=== PATIENT | male | born 1950 | race Caucasian/White ===

== ENCOUNTER → 2017-08-12 11:35 | Outpatient (CLI) | payer MEDICARE, OTHER, SELFPAY ==
--- NOTE | 2017-08-12 11:39 | RAD_ITS ---
STUDY: X-RAY - LUMBOSACRAL SPINE REASON FOR EXAM: Male, 67 years old. Back pain TECHNIQUE: Six view(s) of the lumbosacral spine were obtained. COMPARISON: February 12, 2016 FINDINGS: Normal lumbar lordosis. There is stable mild dextroscoliosis. There is normal alignment of the vertebrae. There is minimal spurring throughout the lumbar spine. There is moderate disc space narrowing at L4-5 and L1-2. There is mild disc space narrowing at L2-3. Normal bilateral sacral ala, sacroiliac joints, and visualized sacrum. There is atherosclerotic calcification of the abdominal aorta without a demonstrated aneurysm. RAD/L/S Spine Comp/w Bending Views IMPRESSION: There are stable moderate degenerative disc changes at L1-2 and L4-5. There are stable mild degenerative disc changes at L2-3. There is stable mild dextroscoliosis. Alignment is intact and remains stable with flexion and extension. Electronically Signed: Sheryl Nunez MD at 7:11 EDT Tel Direct: [phone], Service support ,
== END ==
PROVIDERS: Family Provider Family Medicine; PCP Family Medicine; Visit Provider Orthopaedic Surgery
DX: M54.5 Low back pain (principal)
CPT/HCPCS: 72114

== ENCOUNTER → 2022-01-03 | Outpatient (CLI) | payer MEDICARE, OTHER, SELFPAY ==
--- NOTE | 2022-01-03 14:48 | CT_ITS ---
STUDY: CT RIGHT LOWER EXTREMITY WITHOUT CONTRAST REASON FOR EXAM: Right knee osteoarthritis, surgical planning. TECHNIQUE: Transaxial CT imaging of the lower extremity was performed. Coronal and sagittal images were reformatted. Individualized dose optimization techniques were used for this CT. COMPARISON: Radiographs 09/10/2021. FINDINGS: Knee: There are small marginal osteophytes of the medial femorotibial compartment with preservation of joint space. There are marginal osteophytes, subchondral eburnation and severe joint space narrowing of the lateral femorotibial compartment (coronal reconstruction 32). There are marginal osteophytes with preservation of joint space the patellofemoral compartment. There are intra-articular bodies (sagittal reconstructions 36-40). There is a small joint effusion. There is a small popliteal cyst containing intra-articular bodies (sagittal reconstructions 46-49). There is vascular calcification. Hip: There is subchondral cystic change of the lateral acetabulum (coronal reconstructions 47-50) with preservation of joint space. Ankle: There is arthrosis with joint space narrowing at the anterior aspect of the tibiotalar articulation (sagittal reconstructions 25, 26). Normal posterior subtalar, talonavicular and calcaneocuboid articulations. CT/Extremity Lower without Contra IMPRESSION: Right knee osteoarthritis. Electronically Signed: Agustín Gleason MD at 14:55 EDT ,
== END | disposition home or self-care (01) ==
LOC: CT 14:45
PROVIDERS: PCP Family Medicine; Visit Provider Orthopaedic Surgery
DX: M17.0 Bilateral primary osteoarthritis of knee (principal)
CPT/HCPCS: 73700

== ENCOUNTER → 2022-03-05 | Outpatient (CLI) | payer MEDICARE, OTHER, SELFPAY ==
--- NOTE | 2022-03-05 09:12 | EKG12_ITS ---
Test Reason : PRE OP Blood Pressure : / mmHG Vent. Rate : 061 BPM Atrial Rate : 061 BPM P-R Int : 178 ms QRS Dur : 094 ms QT Int : 438 ms P-R-T Axes : 064 -53 -29 degrees QTc Int : 440 ms Sinus rhythm with Premature atrial complexes Left axis deviation Nonspecific ST & T wave abnormality Poor R wave progression Septal MN, age undetermined, cannot be excluded Abnormal ECG Confirmed by LEO LUND, SIGRID ([id number]), mapping editor SERENA PAREDES ([id number]) on 03/06/2022 9:29:31 AM Referred By: Marquez Bhandari Confirmed By:SIGRID BAILEY MD
[2022-03-05 10:16] LABS: Absolute Lymphocyte Count 1.92 X10^3/uL (0.83-4.51); Absolute Neutrophil Count 3.2 X10^3/uL (2.0-7.7); Basophil# 0.02 X10^3/uL; Basophil% 0.3 % (0-1); Eosinophil# 0.22 X10^3/uL; Eosinophils% 3.7 % (0-5); Hematocrit 47.3 % (40-54); Hemoglobin 16.2 g/dL (13.0-16.5); Lymphocyte # 1.92 X10^3/ul (0.83-4.51); Lymphocyte % 32.7 % (19-41); Mean Corp Hgb Conc 34.2 g/dL (32-36); Mean Corpuscular Hgb 30.4 pg (27.0-32.0); Mean Corpuscular Volume 88.7 fL (80-94); Mean Platelet Vol. 9.4 fl (6.2-12.0); Monocyte# 0.49 X10^3/uL; Monocyte% 8.3 % (0-10); NRBC Flagged by Analyzer 0 % (0-5); Neutrophil # 3.22 X10^3/uL (2.7-7.7); Neutrophil % 54.8 % (47-70); Platelet Count 235 K/mm3 (150-450); RBC Distribution Width CV 13.4 % (11.6-14.6); RBC Distribution Width SD 43.6 fl (35.1-43.9); Red Blood Count 5.33 M/mm3 (4.6-6.2); White Blood Count 5.9 K/mm3 (4.4-11.0)
[2022-03-05 10:25] LABS: Prothrombin Time (Protime)PT. 12.9 SECONDS (11.7-14.9)
[2022-03-05 10:26] LABS: Partial Thromboplast Time 30.8 Seconds (24.1-36.2)
[2022-03-05 11:00] LABS: Anion Gap 5 (5-15); BUN 25 mg/dL (7-18); BUN/Creat Ratio 19.4 RATIO (10-20); Calcium,Total 9.7 mg/dL (8.5-10.1); Chloride 104 mmol/L (98-107); Creatinine, Serum 1.29 mg/dL (0.70-1.30); EST Glomerular Filtration Rate 58 mL/min (>60); Est Glom Filt Rate - Afr Amer 70 mL/min (>60); Glucose 75 mg/dL (74-106); Potassium 3.8 mmol/L (3.5-5.1); Sodium Level 141 mmol/L (136-145)
[2022-03-05 11:35] LABS: Magnesium 2.4 mg/dL (1.6-2.6)
[2022-03-06 14:37] LABS: Fructosamine 250 umol/L (0-285)
[2022-04-16 09:16] VITALS: BP 156/106; PULSE 140; RESP 17; TEMP 37.2; O2SAT 97; BMI 28.0
[2022-04-16 09:49] LABS: Troponin-I HS 17 pg/mL (3.0-78.0)
[2022-04-16 09:51] LABS: Bedside Glucose 96 mg/dL (74-106)
--- NOTE | 2022-04-16 10:12 | SUR.PREOP ---
THIS NURSE CALLED REPORT TO ER TRIAGE, PT CASE CANCELLED, PT WILL BE TRANSPORTED TO ER FOR TREATMENT OF ELEVATED HEART RATE.
== END | disposition home or self-care (01) ==
LOC: PAT 04-18 08:38
PROVIDERS: Anesthesiology; PCP Family Medicine; Referring Provider Orthopaedic Surgery; Visit Provider Orthopaedic Surgery
DX: Z01.812 Encounter for preprocedural laboratory examination (principal); E21.3 Hyperparathyroidism, unspecified; Z01.810 Encounter for preprocedural cardiovascular examination; R94.31 Abnormal electrocardiogram [ECG] [EKG]; I10 Essential (primary) hypertension; I49.1 Atrial premature depolarization
CPT/HCPCS: 36415; 80048; 82962; 82985; 83735; 84484; 85025; 85610; 85730; 86850; 86900; 86901; 87081; 93005; J7120; J2405; J3475

== ENCOUNTER → 2022-03-22 | Outpatient (CLI) | payer MEDICARE, OTHER, SELFPAY ==
--- NOTE | 2022-03-22 06:46 | ECHOD_ITS ---
Reason For Study: Abnormal EKG Procedure This was a 2D Doppler, Color Flow transthoracic echocardiogram. The exam was of adequate technical quality. Exam performed in department. Left Ventricle Normal size and thickness. Left ventricular systolic function is normal. The estimated ejection fraction is 60 %. No evidence for diastolic dysfunction. No regional wall motion abnormalities noted. Right Ventricle Normal RV size. Normal systolic function. Atria Normal left atrium. Normal right atrium. No doppler evidence for ASD. Mitral Valve There is mild mitral annular calcification. Normal mitral valve. Trivial mitral valve insufficiency. Tricuspid Valve Normal tricuspid valve. Trivial tricuspid valve insufficiency. Unable to estimate RV systolic pressure due to insufficient tricuspid regurgitant envelope. Aortic Valve Trisinus/trileaflet aortic valve. Mild diffuse aortic valve thickening. Mild focal aortic valve calcification. Pulmonic Valve The pulmonic valve is not well visualized. Mild (1+) pulmonic valve insufficiency. Great Vessels The aortic root is not well visualized. Pericardium/Pleural No pericardial effusion. MMode/2D Measurements & Calculations LVIDd: 5.2 cm IVSd: 1.2 cm LA dimension: 4.5 cm LVIDs: 3.6 cm LVPWd: 1.2 cm RVDd: 4.0 cm FS: 29.9 % LAV(MOD-bp): 54.1 ml LA A4 area: 17.4 cm2 RA A4 area: 20.8 cm2 LAV(MOD-bp) Indexed: 23.7 ml/m2 LAV(MOD-sp2): 61.9 ml LAV(MOD-sp4): 46.3 ml Time Measurements MV dec time: 0.25 sec Doppler Measurements & Calculations MV E max shane: 78.0 cm/sec Lat Peak E' Shane: 10.0 cm/sec Med Peak E' Shane: 8.0 cm/sec MV A max shane: 113.5 cm/sec E/E' lat: 7.8 E/E' med: 9.7 MV E/A: 0.69 MV V2 max: 113.5 cm/sec MV P1/2t max shane: 104.6 cm/sec Ao V2 max: 117.5 cm/sec MV max P.2 mmHg MV P1/2t: 87.8 msec Ao max P.5 mmHg MV V2 mean: 50.7 cm/sec MV dec slope: 348.8 cm/sec2 MV mean P.3 mmHg MVA(P1/2t): 2.5 cm2 MV V2 VTI: 43.6 cm LV V1 max: 88.7 cm/sec PA V2 max: 102.9 cm/sec LV V1 max P.1 mmHg ECHO/Echo Complete Interpretation Summary Left ventricular systolic function is normal. The estimated ejection fraction is 60 %. There is mild mitral annular calcification. Trivial mitral valve insufficiency. Trivial tricuspid valve insufficiency. Mild diffuse aortic valve thickening. Mild focal aortic valve calcification. Mild (1+) pulmonic valve insufficiency. Unable to estimate RV systolic pressure due to insufficient tricuspid regurgita nt envelope. No evidence for diastolic dysfunction. Ordering Physician: Krystle Berkowitz Referring Physician: Too Couch Performed By: Immanuel Landin RCS
--- NOTE | 2022-03-22 08:58 | STRESSREP_ITS ---
Stress Test Report Date: 03-22-2022 Procedure: Pharmacologic stress nuclear imaging study Indications: Abnormal ECG; preoperative cardiovascular evaluation Consent: Per the patient Procedure: The patient underwent pharmacologic (Regadenoson 0.4mg ) evaluation with a peak heart rate of 86 beats per minute (58%predicted maximal heart rate) and a resting blood pressure of 182/80 mmHg and a peak blood pressure of 182/80 mmHg. The baseline ECG demonstrated sinus bradycardia; septal AR-indeterminate age- cannot be excluded; nonspecific ST/T wave abnormality. The peak pharmacologic ECG demonstrated no obvious ECG changes. There was a rare PAC pretest and a rare PVC posttest. There was no complaint of chest discomfort during pharmacologic infusion or recovery. The examination was discontinued secondary to completion of protocol. Impression: 1. Pharmacologic (Regadenoson) evaluation 2. Peak pharmacologic ECG with no obvious ECG changes. 3. There was a rare PAC pretest and a rare PVC posttest. 4. Nuclear images pending Myocardial perfusion imaging study: Technique: The patient was injected with 11.4 millicuries of technetium 99m Cardiolite and subsequently rest SPECT Cardiolite nuclear imaging was obtained in the horizontal long, vertical long, and short axis views. The patient underwent pharmacologic (Regadenoson) evaluation with a peak heart rate of 86 beats per minute (58% percent predicted maximal heart rate) and a resting blood pressure of 182/80 mmHg and a peak blood pressure of 182/80 mmHg. The patient was injected with 33.7 millicuries of technetium 99m Cardiolite and subsequently stress SPECT Cardiolite nuclear imaging was obtained in the horizontal long, vertical long, and short axis views. A gated Cardiolite study at peak stress was not obtained. Interpretation: Rest and stress SPECT Cardiolite nuclear imaging status post realignment, normalization, and attenuation correction demonstrate a small area of subtle diminished tracer uptake near the apical segments without significant change between rest and stress appearing compatible with soft tissue attenuation/artifact/physiologic apical thinning. Impression: 1. Rest and stress SPECT Cardiolite nuclear imaging demonstrate a small area of subtle diminished tracer uptake near the apical segments without significant change between rest and stress appearing compatible with soft tissue attenuation/artifact/physiologic apical thinning with no myocardial perfusion changes considered diagnostic for associated stress-induced myocardial ischemia. 2. The gated Cardiolite study was not obtained. This note was generated with [employer] software. It may contain incorrect words, spelling, and punctuation that were not noted in checking the note before signing.
== END | disposition home or self-care (01) ==
LOC: CVS 06:45
PROVIDERS: PCP Family Medicine; Referring Provider Internal Medicine Cardiovascular Disease; Visit Provider Internal Medicine Cardiovascular Disease
DX: Z01.810 Encounter for preprocedural cardiovascular examination (principal); R94.31 Abnormal electrocardiogram [ECG] [EKG]
CPT/HCPCS: 78452; 93017; 93306; A9500; A4216; J2785

== ENCOUNTER → 2022-04-05 | Outpatient (CLI) | payer MEDICARE, OTHER, SELFPAY ==
[2022-04-05 10:21] LABS: Anion Gap 6 (5-15); BUN 23 mg/dL (7-18); BUN/Creat Ratio 20.4 RATIO (10-20); Calcium,Total 9.3 mg/dL (8.5-10.1); Chloride 102 mmol/L (98-107); Creatinine, Serum 1.13 mg/dL (0.70-1.30); EST Glomerular Filtration Rate 67 mL/min (>60); Est Glom Filt Rate - Afr Amer 82 mL/min (>60); Glucose 72 mg/dL (74-106); Potassium 3.8 mmol/L (3.5-5.1); Sodium Level 140 mmol/L (136-145)
== END | disposition home or self-care (01) ==
LOC: LAB 09:23
PROVIDERS: PCP Family Medicine; Referring Provider Internal Medicine Cardiovascular Disease; Visit Provider Internal Medicine Cardiovascular Disease
DX: Z01.818 Encounter for other preprocedural examination (principal); I10 Essential (primary) hypertension; E83.52 Hypercalcemia
CPT/HCPCS: 36415; 80048; 86850; 86900; 86901

== ENCOUNTER 2022-04-16 10:25 | Emergency (ER) | payer MEDICARE, OTHER, SELFPAY ==
[2022-04-16 10:26] VITALS: BP 113/95; PULSE 138; RESP 16; TEMP 37; O2SAT 97; BMI 28.0
[2022-04-16 10:33] VITALS: BP 161/100; PULSE 141; RESP 15; O2SAT 96
--- NOTE | 2022-04-16 10:50 | EDS_ITS ---
HPI History of Present Illness Chief Complaint: Palpitations Informant: patient and spouse/S.O. Narrative Narrative: 71-year-old male arriving to the emergency department chief complaint of atrial flutter. The patient states that he recently underwent preoperative stress test and echocardiogram for a knee replacement. He states that he passed those test and showed up today for surgery. While in the preoperative area was noted that he was in atrial flutter. Patient states that this morning when he got up to drink his coffee he did feel his heart racing but does not feel that way now. He denies any syncope. He notes a history of hypertension and states that he has recently had his blood pressure medications changed. He denies any prior history of atrial flutter or fibrillation. [facility] Medical History Alcohol use Bilateral primary osteoarthritis of knee BPH (benign prostatic hyperplasia) Cardiology follow-up encounter Erectile dysfunction Essential (primary) hypertension Former smoker History of echocardiogram History of stress test Hypercalcemia Hyperparathyroidism Kidney stones Leg cramps Recurrent kidney stones Wears glasses Home Medications grape seed extract 50 mg capsule (Grape Seed) 50 mg PO DAILY SUPPLEMENT 03/12/22 [History Last Taken 04/16/22] aspirin 81 mg tablet,delayed release 81 mg PO DAILY heart health 04/03/22 [History Last Taken 04/09/22] apixaban 5 mg tablet (Eliquis) 5 mg PO BID #74 tabs 04/16/22 [Rx Last Taken Unknown] diltiazem HCl 180 mg capsule,24 hr,extended release 180 mg PO DAILY #30 caps 04/16/22 [Rx Last Taken Unknown] hydrochlorothiazide 25 mg tablet 25 mg PO DAILY BLOOD PRESSURE 04/16/22 [History Last Taken 04/16/22] lisinopril 20 mg tablet 20 mg PO DAILY BLOOD PRESSURE 04/16/22 [History Last Taken 04/16/22] multivitamin 1 tab PO DAILY HEALTH MAINTENANCE 04/16/22 [History Last Taken 04/15/22] nifedipine 60 mg tablet,extended release 60 mg PO DAILY ANGINA 04/16/22 [History Last Taken 04/16/22] Allergy/AdvReac Type Severity Reaction Status Date / Time No Known Allergies Allergy Verified 04/16/22 09:15 Family History Father Hypertension Brother Hypertension Sister Hypertension Daughter Hypertension Surgical History H/O lithotripsy History of parathyroid surgery S/P tonsillectomy Social History household members: spouse Smoking Status: Former smoker how long ago did patient quit smokin-9 years ago alcohol intake: current alcohol intake frequency: a few times a month Alcohol type: beer substance use type: does not use caffeine: Yes Type: coffee Number of servings: 2 what type of physical activity do you participate in: walking and other deta ils: golf, pickle bar ROS ROS ED Constitutional Constitutional ED: Denies chills or weight loss Eyes Eyes: Denies change in vision or diplopia ENT ENT ED: Denies ear pain, rhinorrhea or sore throat Cardiovascular Cardiovascular: Reports racing heartbeat; Denies chest pain, orthopnea or palpitations Respiratory/Chest Respiratory/Chest: Denies cough, dyspnea or orthopnea Gastrointestinal Gastrointestinal: Denies abdominal pain, diarrhea, nausea or vomiting Genitourinary Genitourinary ED: Denies dysuria, hematuria or urinary frequency Musculoskeletal Musculoskeletal: Denies arthralgias or myalgias Integumentary Denies abscess or rash Neurologic Neurologic: Denies headache(s) or weakness Psychiatric Psychiatric: Denies anxiety, depression, suicidal ideation or suicidal thoughts Endocrine Endocrinology: Denies polydipsia, polyphagia or polyuria Allergic/Immunologic Allergic/Immunologic ED: Denies mouth swelling, tongue swelling or urticaria EXAM Physical Exam Const Vital Signs: 04/16/22 10:26 04/16/22 10:33 04/16/22 10:42 Temperature 98.6 F Temperature Source Temporal Pulse Rate 138 H 141 H Respiratory Rate 16 15 Respiratory Effort Normal Non-Labored Blood Pressure 113/95 H 161/100 H Blood Pressure Mean 101 120 Pulse Ox 97 96 Oxygen Delivery Method Room Air Room Air 04/16/22 11:11 04/16/22 11:46 04/16/22 12:00 Temperature Temperature Source Pulse Rate 139 H 78 78 Respiratory Rate 15 15 Respiratory Effort Blood Pressure 118/87 H 138/86 H 141/90 H Blood Pressure Mean 97 103 107 Pulse Ox 96 96 Oxygen Delivery Method Room Air Room Air 04/16/22 12:57 Temperature Temperature Source Pulse Rate 73 Respiratory Rate 16 Respiratory Effort Blood Pressure 137/86 H Blood Pressure Mean Pulse Ox 95 Oxygen Delivery Method Positive well nourished and well developed General Appearance ED: well developed HEENT Reports normocephalic, head/scalp atraumatic and moist mucous membranes Eyes PERRL and EOMs intact bilaterally Neck no lymphadenopathy, supple and no JVD Resp normal respiratory effort and clear to auscultation bilaterally Cardio regular rate and no murmurs Rate: tachycardic Rhythm: abnormal rhythm GI normal to inspection, nondistended, normoactive bowel sounds and non-tender Palpation: soft Back/Spine no CVA tenderness and normal ROM Extremity normal to inspection General Extremety ED: Negative for edema General Extremity: Negative for edema Neuro oriented x3 and CN's II-XII intact bilaterally Sensorium / Orientation: alert Motor Exam: strength 5/5 throughout Psych mental status grossly normal Mood & Affect: Negative for depressed or tearful Skin no rashes or lesions noted and no wounds MDM MDM MDM Narrative Medical decision making narrative: I was able to review the patient's EKG from the preoperative area which demonstrates atrial flutter with a ventricular rate of 139 bpm. Basic blood work was obtained and essentially negative. Magnesium is normal at 2.1 potassium slightly low at 3.3. My interpretation of the chest x-ray is no acute process. Patient was given a dose of Lovenox and placed on a Cardizem drip. Shortly thereafter he converted into a normal sinus rhythm. I spoke with our on-call header set up operator Dr. Wolff. We are going to have him stop his nifedipine we will be placing him on diltiazem. It was also recommended that he go on Eliquis. Patient recommended that he follow-up with cardiology. Lab Data Attestation: I reviewed the patient's lab results. Labs: Laboratory Results - last 24 hr 04/16/22 04/16/22 04/16/22 10:55 10:55 10:55 WBC 6.9 RBC 5.27 Hgb 15.9 Hct 46.1 MCV 87.5 MCH 30.2 MCHC 34.5 RDW Std Deviation 41.1 RDW Coeff of Lyndsey 12.9 Plt Count 226 MPV 9.2 Immature Gran % (Auto) 0.100 Neut % (Auto) 57.9 Lymph % (Auto) 31.4 [place] % (Auto) 7.4 Eos % (Auto) 2.6 Baso % (Auto) 0.6 Absolute Neuts (auto) 4.0 Absolute Lymphs (auto) 2.16 Nucleated RBC % 0 PT 13.1 INR 1.0 APTT 31.7 Sodium 139 Potassium 3.3 L Chloride 104 Carbon Dioxide 27.0 Anion Gap 8 BUN 23 H Creatinine 1.08 Estim Creat Clear Calc 70.83 Est GFR (MDRD) Af Amer 86 Est GFR (MDRD) Non-Af 71 BUN/Creatinine Ratio 21.3 H Glucose 89 Calcium 9.0 Magnesium 2.1 TSH 1.30 Radiography Diagnostic Testing: Clinical Impression(s) from Imaging Studies Chest X-Ray 04/16/22 11:04 IMPRESSION: Elevation of the right hemidiaphragm. Prominent bilateral central pulmonary arteries. Electronically Signed: Coleman Weiss MD at 12:03 EST , Discharge Plan Triage Chief Complaint: Palpitations ED Provider: Farzad Allen Dx/Rx/DC Orders Clinical Impression: Essential (primary) hypertension, New onset atrial flutter, Acute hypokalemia Instructions: ED Atrial Flutter Prescriptions: New Eliquis 5 mg tablet 5 mg PO BID Qty: 74 0RF Rx Instructions: 10 mg twice a day for the first week. Then 5 mg twice a day. diltiazem HCl 180 mg capsule,extended release 24 hr 180 mg PO DAILY Qty: 30 0RF No Action grape seed extract [Grape Seed] 50 mg capsule 50 mg PO DAILY aspirin [Aspir-81] 81 mg Tablet,Delayed Release (Dr/Ec) 81 mg PO DAILY multivitamin Tablet 1 tab PO DAILY lisinopril 20 mg tablet 20 mg PO DAILY hydrochlorothiazide 25 mg tablet 25 mg PO DAILY nifedipine 60 mg tablet extended release 60 mg PO DAILY Primary Care Provider: Too Couch Referrals: Bruce Wolff MD [Med Staff - Active Staff] - As soon as possible Too Couch MD [Primary Care Provider] - Disposition Disposition: Home, Self Care Discharge Date/Time: 04/16/22 13:06
--- NOTE | 2022-04-16 11:04 | RAD_ITS ---
STUDY: X-RAY CHEST REASON FOR EXAM: Male, 71 years old. PALPITATIONS TECHNIQUE: Single AP portable view of the chest. COMPARISON: None. FINDINGS: EKG electrodes are seen. There is elevation of the right hemidiaphragm. There is no demonstrated pleural abnormality. Normal size heart. Normal mediastinum and lyn. There is prominence of the pulmonary hilar arteries without peripheral pulmonary vascular congestion, suggesting pulmonary hypertension. There is atherosclerotic calcification of the aortic arch with tortuosity. Normal visualized thoracic spine. Normal visualized ribs, clavicles, and shoulders. There is no demonstrated abnormality of the visualized soft tissue structures of the upper abdomen. RAD/Chest 1 View (Portable) IMPRESSION: Elevation of the right hemidiaphragm. Prominent bilateral central pulmonary arteries. Electronically Signed: Coleman Weiss MD at 12:03 EST ,
[2022-04-16 11:06] LABS: Absolute Lymphocyte Count 2.16 X10^3/uL (0.83-4.51); Basophil# 0.04 X10^3/uL; Basophil% 0.6 % (0-1); Eosinophil# 0.18 X10^3/uL; Eosinophils% 2.6 % (0-5); Hematocrit 46.1 % (40-54); Hemoglobin 15.9 g/dL (13.0-16.5); Lymphocyte # 2.16 X10^3/ul (0.83-4.51); Lymphocyte % 31.4 % (19-41); Mean Corp Hgb Conc 34.5 g/dL (32-36); Mean Corpuscular Hgb 30.2 pg (27.0-32.0); Mean Corpuscular Volume 87.5 fL (80-94); Mean Platelet Vol. 9.2 fl (6.2-12.0); Monocyte# 0.51 X10^3/uL; Monocyte% 7.4 % (0-10); NRBC Flagged by Analyzer 0 % (0-5); Neutrophil # 3.98 X10^3/uL (2.7-7.7); Neutrophil % 57.9 % (47-70); Platelet Count 226 K/mm3 (150-450); RBC Distribution Width CV 12.9 % (11.6-14.6); RBC Distribution Width SD 41.1 fl (35.1-43.9); Red Blood Count 5.27 M/mm3 (4.6-6.2); White Blood Count 6.9 K/mm3 (4.4-11.0)
[2022-04-16] MEDS: Aspirin 81 MG TAB.CHEW 324 MG PO (11:07)
[2022-04-16] MEDS: Enoxaparin 100 MG/ML Syringe SC (11:07)
[2022-04-16 11:11] VITALS: BP 118/87; PULSE 139
[2022-04-16] MEDS: dilTIAZem 25 MG/5 ML Vial 10 MG IV BOLUS (11:11)
[2022-04-16 11:15] LABS: Prothrombin Time (Protime)PT. 13.1 SECONDS (11.7-14.9)
[2022-04-16 11:16] LABS: Partial Thromboplast Time 31.7 Seconds (24.1-36.2)
[2022-04-16 11:31] LABS: Anion Gap 8 (5-15); BUN 23 mg/dL (7-18); BUN/Creat Ratio 21.3 RATIO (10-20); Chloride 104 mmol/L (98-107); Creatinine, Serum 1.08 mg/dL (0.70-1.30); EST Glomerular Filtration Rate 71 mL/min (>60); Est Glom Filt Rate - Afr Amer 86 mL/min (>60); Estimated Creatinine Clearance 70.83 ml/min; Glucose 89 mg/dL (74-106); Magnesium 2.1 mg/dL (1.6-2.6); Potassium 3.3 mmol/L (3.5-5.1); Sodium Level 139 mmol/L (136-145)
[2022-04-16 11:46] VITALS: BP 138/86; PULSE 78; RESP 15; O2SAT 96
--- NOTE | 2022-04-16 11:54 | NURSING ---
DR CROOK NOTIFIED PT IN SR ON TELE. EKG BEING OBTAINED.
[2022-04-16 12:00] VITALS: BP 141/90; PULSE 78; RESP 15; O2SAT 96
--- NOTE | 2022-04-16 12:42 | EKG12_ITS ---
Test Reason : REPEAT-RHYTHM CHANGE Blood Pressure : / mmHG Vent. Rate : 070 BPM Atrial Rate : 070 BPM P-R Int : 210 ms QRS Dur : 116 ms QT Int : 390 ms P-R-T Axes : 026 -53 018 degrees QTc Int : 421 ms Sinus rhythm with 1st degree A-V block Left axis deviation Left ventricular hypertrophy with QRS widening ( R in aVL , Gerry product ) Abnormal ECG Confirmed by CARLOS ALBERTO LUND, MARCELINA ([id number]), metropolitan editor JOSE COSTA ([id number]) on 04/17/2022 2:38:28 PM Referred By: ARMAAN Confirmed By:MARCELINA CARCAMO MD
[2022-04-16 12:57] VITALS: BP 137/86; PULSE 73; RESP 16; O2SAT 95
== END 2022-04-16 13:06 | disposition home or self-care (01) ==
PROVIDERS: Emergency Provider Emergency Medicine; PCP Family Medicine; Visit Provider Emergency Medicine
DX: I48.92 Unspecified atrial flutter (principal); R00.2 Palpitations; E87.6 Hypokalemia; I10 Essential (primary) hypertension; N40.0 Benign prostatic hyperplasia without lower urinary tract symptoms; N52.9 Male erectile dysfunction, unspecified; Z87.891 Personal history of nicotine dependence; Z79.899 Other long term (current) drug therapy; Z79.82 Long term (current) use of aspirin
CPT/HCPCS: 71045; 80048; 82962; 83735; 84443; 84484; 85025; 85610; 85730; 93005; 99283; J7120; A4216

== ENCOUNTER 2022-04-30 08:18 | Inpatient (IN) | payer MEDICARE, OTHER, SELFPAY ==
[2022-04-23 14:24] LABS: Anion Gap 5 (5-15); BUN 39 mg/dL (7-18); BUN/Creat Ratio 24.8 RATIO (10-20); Calcium,Total 9.1 mg/dL (8.5-10.1); Chloride 102 mmol/L (98-107); Creatinine, Serum 1.57 mg/dL (0.70-1.30); EST Glomerular Filtration Rate 46 mL/min (>60); Est Glom Filt Rate - Afr Amer 56 mL/min (>60); Glucose 89 mg/dL (74-106); Potassium 3.7 mmol/L (3.5-5.1); Sodium Level 140 mmol/L (136-145)
--- NOTE | 2022-04-23 15:22 | CASEMGMT ---
BRIDGETT CAMARA Assessment: TC to pt for initial transition planning/care coordination assessment. RN JAX introduced self and role at [facility], pt voices understanding and consents to assessment. Care providers, pharmacy, and demographics verified/updated. Admitting Dx: R lap robotic total knee PCP:Khoa Specialists:Lópezrublake, ortho; Cuco, uro Preferred Pharmacy: [facility] Retail Insurance: [facility], A[employer] Prescription Benefit: yes LNOK: Kenzie Quintana, Living Arrangements: Pt lives with in a two story home with 3 steps to enter without a rail. Pt reports he is I in ADL's and denies concerns at home. Transportation: Pt drives self and denies concerns with transportation. Pt states his will transport him after surgery to medical appts. DME/HHC/SNF: Pt has a FWW and canes at home, denies hx of HHC or SNF stays. Pt states no concerns with going home at time of dc. He states his dtr plans to stay with him for a couple of days to assist. Pt has therapy set up at [facility] in [place] for 05/02. Pt states no further concerns/needs. CM to follow. Advised pt to ask CM if any further question/concerns/needs arise, voices understanding. Pt Goal: Home with outpt therapy already set up Plan: Home with outpt therapy already set up
[2022-04-25 07:39] LABS: Fructosamine 230 umol/L (0-285)
[2022-04-29] VITALS (20 sets, daily range): BP systolic 124–186; BP diastolic 62–157; PULSE 51–77; RESP 16–20; TEMP 36.1–36.7; O2SAT 92–100; BMI 28.0
[2022-04-29] MEDS: Lactated Ringers 1,000 ML 125 ML IV ×4 (11:00→20:03)
[2022-04-29] MEDS: Scopolamine 1mg/72hr Patch 1 PATCH TD (11:04)
[2022-04-29] MEDS: Magnesium 1 GM over 15 mins IV (11:04)
[2022-04-29] MEDS: Celecoxib 200 MG Capsule 400 MG PO (11:05)
[2022-04-29] MEDS: Gabapentin 600 MG Tablet PO (11:05)
[2022-04-29] MEDS: Acetaminophen 500 MG Tablet 1000 MG PO ×2 (11:05→22:04)
[2022-04-29 11:25] LABS: Bedside Glucose 93 mg/dL (74-106)
[2022-04-29] MEDS: Cefazolin 2 GM in 0.9% Normal Saline 100 ML IV (12:55)
--- NOTE | 2022-04-29 12:59 | HP.PCM_ITS ---
History and Physical Date of Admission: 04/29/22 [facility] [address] [place] [address] OFFICE VISIT Date of Service:? 09/10/21 MR#: [id number] Acct: [id number] Name:JOI BURT Rep #: [id number] : 1950 ? ? Provider: Dr. Marquez Bhanadri DO Age/Sex:? 71/M ? ? [place] [facility] [place] Status: Signed Intake Vital Signs ? 09/10/2208:40 Height 6 ft 2 in Weight: 230 lb 8 oz BMI 29.5 Intake Visit Reasons:?BL KNEES Is patient in pain?: Yes Pain scale (1-10): 1 Allergies No Known Allergies Allergy (Verified 09/10/21 09:41) Medications lisinopril 5 mg tablet 5 mg PO QDAY 06/06/17 [History Confirmed 09/10/21] amlodipine 10 mg tablet mg PO 09/10/21 [History Confirmed 09/10/21] grape seed extract 50 mg capsule 50 mg PO ONCE 09/10/21 [History Confirmed 09/10/21] PFSH Medical History?(Updated 09/10/21 @ 10:14 by Angelika Nieto) Bilateral primary osteoarthritis of knee Hypertension Kidney stones Surgical History?(Updated 06/06/17 @ 14:17 by Sofy Serrano) H/O lithotripsy S/P tonsillectomy Family History? Father HypertensionBrother Hypertension Social History?(Updated 09/10/21 @ 09:42 by Angelika Nieto) household members:? spouse Smoking Status:? Former smoker alcohol intake:? current HPI BL KNEES Details: Parts of this documentation were recorded by a scribe, this documentation accurately reflects the service provided and the decisions made by me, Dr. Marquez Bhandari, 09/10/21 0753. JOI STRINGER is a 71 year old M here today for bilateral knee pain. Patient states that he has had right knee pain off and on for about 30 years. He has had left knee pain for about a year while hiking in the [employer]. He states that he had an injury many years ago while playing basketball. Patient notes that his pain is over his anterior knees. Patient denies any popping or clicking. He denies any current knee swelling. He has increased pain with carrying heavy items and ambulating downhill. He complains of instability. He has knee braces that he wears when doing certain activities. He saw Dr Wilton Oconnor who gave him viscosupplementation injections which helped the right knee. He denies any steroid injections. Patient denies any physical therapy. He takes ibuprofen as needed for pain. Patient denies any MRI. He denies any recent xrays. Ortho Exam General General: Yes no acute distress Neurologic: Yes alert Psychologic: Yes reasonable and appropriate Right Knee Skin/Wound: Yes CDI, No erythema, No ecchymosis and No swelling Knee ROM: Yes ROM-Extension -20 to 0 (-6) and Yes ROM-Flexion 0-140 (123) Stability: NML: Valgus 30 and NML: Varus 30 Apprehension with Lateral Translation: No Patellar Tilt Normal: Yes Patella Grind: Yes KNEE: valgus knee. crepitus with patellar grind, bakers cyst Left Knee Skin/Wound: Yes CDI, No ecchymosis, No erythema and No swelling Knee ROM: Yes ROM-Extension -20 to 0 (-5) and Yes ROM-Flexion 0-140 Stability: NML: Anterior Drawer, NML: Posterior Drawer, NML: Valgus 30 and NML: Varus 30 Patella Grind: No KNEE: bakers cyst Supplemental Info 09/10/2021 x-ray bilateral knees: Advanced lateral compartment arthrosis with valgus deformity right worse than left mild to moderate degenerative changes of bilateral patellofemoral joints Coding Level of Care Code Off vis,new,level 3 Diagnoses Bilateral primary osteoarthritis of knee? M17.0 Assessment and Plan Assessment and Plan (1) Bilateral primary osteoarthritis of knee: ?Status:?Acute ?Plan - Dr. Marquez Bhandari, DO: Educated the patient about the anatomy of the knee and etiology of his pain. Spoke with him about his osteoarthritis. Explained that based off of his xrays, he is a candidate for a total knee arthroplasty. Spoke with him about the risks of injury to the common peroneal nerve due to flexion contracture and valgus deformity. Explained the surgery procedure and recovery. Patient will need a CT scan to help template for the maria antonia robot. Spoke with him about the iovera procedure to help with the post op pain. He will be off work for about 3 months before returning to a laborious job. He will be on a blood thinner post op. Spoke with him about inpatient vs outpatient. Explained he may try viscosupplementation injections and/or steroid injections. Patient was not inter ested in a steroid injection at this time. Patient wanted to think about proceeding with a total knee arthroplasty and will contact our office if he would like to proceed with surgery. Follow up on an as needed basis or sooner if pain, swelling, numbness or associated symptoms, or concerns develop.? All questions answered. Patient in agreement of plan. Plan Details Other Orders: ?Orders: ? Knee 4 or More Views Today M25.561, M25.562 ? ? Knee 4 or More Views Today M25.561, M25.562 ? 09/10/21 1036 <Electronically signed by Marquez Bhandari DO> Date Marquez Bhandari DO Cosigner Signature: Date (if applicable) ? CC: ? ~ I have examined the patient and the H&P has been reviewed. There are no clinical changes since date of exam. Previously scheduled for total knee arthroplasty however did have some EKG abnormalities which canceled the surgery he was further seen by cardiology and reevaluated and deemed cleared he has been off his Eliquis for 3 days
--- NOTE | 2022-04-29 13:00 | KNEE_PTH ---
PATIENT: JOI STRINGER LOC: MS3 U#:[id number] AGE/SX: 71/M ROOM: OR317 RE04/30/[address]: Dr. Marquez Bhandari DO : 1950 BED: 1 DIS: 05/01/2022 SPEC #: [id number] RECD: 04/30/22 07:20 STATUS: RJ MISTI #: [id number] YESSICA: 04/29/22 13:[address]: Marquez Bhandari DEPT: SURGICAL PATHOLOGY RECD BY: Zoraida Palmer ENTERED: 04/30/22 07:44 SP TYPE: TOTAL KNEE OTHR DR: Dr. Too Couch MD Tissues: Knee, NOS Procedures: Decalcification bone/plaque Surgery Specimen Level IV HEADER OPERATION: ERAS, total knee replacement robotic arm assist PRE-OP DIAGNOSIS: Osteoarthritis right knee TISSUE SUBMITTED: Bone and tissue right knee MICROSCOPIC DIAGNOSIS Bone and tissue of right knee, total knee resection: Severe degenerative joint disease. Polarizable crystals consistent with pseudogout. AM:vivian 05/03/2022 MICROSCOPIC DESCRIPTION Slides are reviewed. GROSS DESCRIPTION Received is one container designated bone and soft tissue right knee. The specimen consists of multiple fragments of sanchez-yellow bone measuring in aggregate 10 x 9 x 4 cm. Also in the specimen container are multiple fragments of yellow-white soft tissue, predominantly consisting of cartilaginous tissue, measuring in aggregate 4.5 x 2 x 0.5 cm. A number of bony fragments contain articular surfaces consistent with tibial plateau and femoral condyle and displaying prominent osteophyte formation, eburnation, and bone erosion. Clinic Manager sections are submitted in two cassettes as follows: 1 - soft tissue, 2 - bone after decalcification. / SJ:vivian 04/30/2022 TC:[address] [facility]: [id number], [id number]
[2022-04-29] MEDS: TXA 1000mg in NS100 100ml (IVPB at Incision) 660 MG IV (13:10)
[2022-04-29] MEDS: dexAMETHasone 10 MG/ML Vial IV (13:15)
[2022-04-29] MEDS: TXA 1000mg in NS100 100ml (IVPB at Closure) 660 MG IV (13:58)
[2022-04-29] MEDS: Epinephrine (1 mg/ml) 1 MG/ML VIAL (14:57)
[2022-04-29] MEDS: Bupivacaine 0.25% 30 ML Vial (14:57)
[2022-04-29] MEDS: MethylPREDNISolone Acetate 40 MG/ML Vial IM (14:57)
[2022-04-29] MEDS: 0.9% Normal Saline (Pres. free 10 ML Vial (14:57)
--- NOTE | 2022-04-29 15:38 | PCM.OP.BLANK ---
Operative Report Date of Procedure: 04/29/22 Preoperative diagnosis: Right knee DJD Postoperative diagnosis: Same Procedure: Right total knee arthroplasty CT guided Robotic Assisted Implant: Ransom triathlon cemented, femoral component size 6, tibial baseplate size 6, asymmetric patella size 38, polyethylene X3 size 9 CS Anesthesia: Spinal with adductor canal block Tourniquet time: 31 minutes total time 15 minutes first interval up for 2 intervals 300 mmHg Complications: None Condition: Stable to PACU Estimated blood loss: 150 cc Indication for procedure: This is a 71-year-old male with long standing degenerative joint disease of the knee who has failed conservative treatment and wished to proceed with elective total knee arthroplasty. Risk benefits and alternatives were reviewed including; risk of bleeding, infection, nerve artery and tissue damage, continued pain, postoperative stiffness, venous thromboembolism, need for postoperative rehabilitation, mechanical feel to the knee, and expected postoperative course. The pre- operative CT and templating was performed with component sizing. Procedure: The patient was met in the preoperative holding area. The operative extremity was identified by both patient and physician and was marked. Patient was met by anesthesia. An adductor canal block was placed by anesthesia postoperatively the patient was brought back to the operating room on a wheeled cart and transferred to the operating table in the supine position. Anesthesia was started. A well-padded tourniquet was placed on the operative extremity. The patient was prepped and draped in the usual sterile fashion. A timeout was called to ensure the proper patient procedure and extremity were being contemplated. An esmarch was used to exsanguinate the extremity. The tourniquet was inflated. A 10 blade scalpel was used to make a midline incision down through the skin and subcutaneous tissue. Skin retractors placed. Bovie and Aquamantis were used to perform meticulous hemostasis. full-thickness flaps were elevated medial and lateral along the joint capsule. A deep blade scalpel was used to perform a medial parapatellar arthrotomy. The knee was brought to full extension. A bovie was used to release the soft tissues off the most proximal aspect of the medial tibial plateau, a three-quarter inch curved osteotome was also used in this process. The infrapatellar fat pad was excised. The suprapatellar fat pad was excised partially anteriorolateraly and portion the anterioromedial pad was elevated from the femur. At this point our intra-articular femoral array was placed at a 45 degree angle proximal and posterior to the medial epicondyle. femoral checkpoint was placed at this time. Our tibial array was placed greater than 1 hands breath below the incision at a 20 degree angle stab incisions were made with a 15 blade scalpel and pins were placed and attached to the tibial array , tibial checkpoint was placed in the proximal tibial metaphysis. Tourniquet was let down. At this point registration villatoro were taken throughout the knee . Once the knee was registered we then tensioned the medial and lateral ligaments in extension and 90 degrees of flexion. We then used these numbers to adjust our components within parameters to balance the knee in both flexion and extension once this was done on our monitor we then proceeded with using the robotic arm to make our tibial plateau cut, anterior and posterior chamfer and distal femur cuts. we removed the cut fragments with the use of a bovie and Verena, we did use a lamina commercial construction estimator to insure we visualized and removed all posterior osteophytes and at this time also used the Aquamantis on the posterior joint capsule. we then trialed the knee was well balanced in terms of collateral ligaments but was still tight in extension but maintain proper balancing in flexion therefore the robotic arm was brought back in and 1.5 mm of distal femur where was cut chamfer cuts were performed again as well we then retrialed and achieved the desired plan with a well-balanced knee. we used the green probe to hawk the corresponding tibial rotation based on our CT template. Lug holes were drilled in the femur the tibia preparation was completed with the appropriate sized base plate pinned based on previous rotation hawk. An appropriate sized fin punch was used on the tibia and the patella was prepared by first using a caliper to ensure sufficient bone stock and a patellar reamer to remove the desired amount of bone. lug holes drilled for an asymmetric poly. We then brought the knee through range of motion with excellent patellar tracking. We thoroughly irrigated the knee. Trial components were removed a posterior capsular injection was preformed with our standard cocktail. In addition the aqua Mantis was also used to aid in hemostasis. Betadine rinse was allowed to sit and washed out completely. Components were cemented excess cement was removed with Newport elevator the knee was hold in full extension until the cement hardened. Aricept rinse was then used followed by several more liters of irrigation after it was allowed to sit. The joint capsule was closed with #1 Ethibond [id number] followed by Vicryl in the subcutaneous tissues with nabeel in the skin. Arrays and checkpoints were removed prior to closure all counts were correct stab incisions were closed with a staple standard dressing in the form of Mepilex AG for the main incision and a small Mepilex over the pin holes. Thigh-high STEFANI hose applied over top of dressing. Patient tolerated the procedure well and was directed to PACU in stable condition . There were no intraoperative complications.
--- NOTE | 2022-04-29 16:30 | RAD_ITS ---
STUDY: X-RAY - RIGHT KNEE REASON FOR EXAM: Male, 71 years old. Postop. TECHNIQUE: AP view(s) of the knee. COMPARISON: None. FINDINGS: There is a total knee replacement. The prosthetic components are intact and articulate normally with each other. There is no evidence of loosening from the underlying bone. There is no evidence of osseous fracture or destructive osseous pathology. There is air and swelling in the anterior soft tissues with midline skin clips and vascular calcifications are seen within the distal SFA and popliteal artery. RAD/Knee 1 or 2 Views IMPRESSION: Status post right total knee arthroplasty. Electronically Signed: Ty Bowman DO at 17:00 EST ,
[2022-04-29] MEDS: oxyCODONE 5 MG Tablet PO (20:01)
[2022-04-29] MEDS: Cefazolin 1 GM/50 ML BAG IV (20:12)
[2022-04-29] MEDS: Senna/Docusate Sodium 1 Tablet 2 TABLET PO (22:00)
[2022-04-30] MEDS: Cefazolin 1 GM/50 ML BAG IV ×2 (03:36→12:01)
[2022-04-30 03:37] VITALS: BP 142/62; PULSE 55; RESP 18; TEMP 36.7; O2SAT 97
[2022-04-30 06:06] LABS: Hematocrit 39.4 % (40-54); Hemoglobin 13.5 g/dL (13.0-16.5); Mean Corp Hgb Conc 34.3 g/dL (32-36); Mean Corpuscular Hgb 30.2 pg (27.0-32.0); Mean Corpuscular Volume 88.1 fL (80-94); Mean Platelet Vol. 9.5 fl (6.2-12.0); Platelet Count 195 K/mm3 (150-450); RBC Distribution Width CV 12.8 % (11.6-14.6); RBC Distribution Width SD 41.5 fl (35.1-43.9); Red Blood Count 4.47 M/mm3 (4.6-6.2); White Blood Count 8.3 K/mm3 (4.4-11.0)
[2022-04-30] MEDS: Acetaminophen 500 MG Tablet 1000 MG PO (06:09)
[2022-04-30] MEDS: APIXABAN 5 MG TABLET PO ×2 (06:10→21:04)
[2022-04-30] MEDS: oxyCODONE 5 MG Tablet PO (06:19)
[2022-04-30 06:33] LABS: BUN 25 mg/dL (7-18); BUN/Creat Ratio 17.6 RATIO (10-20); Chloride 96 mmol/L (98-107); Creatinine, Serum 1.42 mg/dL (0.70-1.30); EST Glomerular Filtration Rate 52 mL/min (>60); Est Glom Filt Rate - Afr Amer 63 mL/min (>60); Estimated Creatinine Clearance 53.87 ml/min; Glucose 147 mg/dL (74-106); Potassium 3.6 mmol/L (3.5-5.1); Sodium Level 133 mmol/L (136-145)
[2022-04-30 06:34] LABS: Anion Gap 10 (5-15)
--- NOTE | 2022-04-30 07:14 | PN.ORTHO_ITS ---
Subjective Subjective Seen and examined. Pain controlled complain of oxycodone causing confusion denies fevers chills shortness of breath chest pain or nausea ambulated with PT to bathroom yesterday Objective Data Objective Data Vital Signs: Vital Signs Temp Pulse Resp BP Pulse Ox O2 Del Method O2 Flow Rate 98.1 F 55 L 18 142/62 H 97 Room Air 4 04/30/22 03:37 04/30/22 03:37 04/30/22 03:37 04/30/22 03:37 04/30/22 03:37 04/30/22 03:37 04/29/22 18:00 Oxygen Flow Rate (L/min) 4 Oxygen Delivery Method Room Air Weight: 218 lb 7 oz Body Mass Index (BMI) 28.0 Intake & Output: Intake and Output for Last 24 Hours 04/28/22 04/29/22 04/30/22 23:59 23:59 23:59 Intake Total 2249.92 / 2689.92 2242.08 / 2242.08 Balance 2249.92 / 2689.92 2242.08 / 2242.08 Lab / Micro Data Result Diagrams: 04/30/22 05:45 04/30/22 05:45 Labs: Laboratory Results - last 24 hr 04/29/22 10:53: POC Glucose 93 04/30/22 05:45: WBC 8.3, RBC 4.47 L, Hgb 13.5, Hct 39.4 L, MCV 88.1, MCH 30.2, MCHC 34.3, RDW Std Deviation 41.5, RDW Coeff of Lyndsey 12.8, Plt Count 195, MPV 9.5 04/30/22 05:45: Sodium 133 L, Potassium 3.6, Chloride 96 L, Carbon Dioxide 27.0, Anion Gap 10, BUN 25 H, Creatinine 1.42 H, Estim Creat Clear Calc 53.87, Est GFR (MDRD) Af Amer 63, Est GFR (MDRD) Non-Af 52 L, BUN/Creatinine Ratio 17.6, Glucos e 147 H, Calcium 8.0 L Micro: Microbiology 04/23/22 13:21 Swab (Method) Nasal Screen MRSA/MSSA - Final Radiography Diagnostic Testing: Radiology Impression Knee X-Ray 04/29/22 16:30 IMPRESSION: Status post right total knee arthroplasty. Electronically Signed: Ty Bowman DO at 17:00 EST Reading Location ID and State: [address] [place] [address] Tel [phone], Service support , Physical Exam Const alert, oriented x3 and no apparent distress Extremity Extremity Narrative: Right knee dressing clean dry and intact compartments soft neurovascular intact Assessment & Plan Assessment/Plan (1) S/P total knee arthroplasty: PLAN: Plan Postop day #1 right total knee arthroplasty DVT prophylaxis SCDs Eliquis 5 mg twice daily which is his preoperative dose STEFANI hose PT OT weightbearing as tolerated encourage knee range of motion DC oxycodone secondary to confusion patient request new order placed for [place] 10/02/2024 1-2 tabs every 4 hours as needed DC home tomorrow if all is well
[2022-04-30] MEDS: Lisinopril 10 MG Tablet PO (08:54)
[2022-04-30] MEDS: Senna/Docusate Sodium 1 Tablet 2 TABLET PO (08:54)
[2022-04-30] MEDS: dilTIAZem CD 180 MG Capsule PO (08:54)
[2022-04-30 10:00] VITALS: BP 130/66; PULSE 88; RESP 18; TEMP 36.4; O2SAT 97
--- NOTE | 2022-04-30 11:41 | CASEMGMT ---
BRIDGETT CM in to pt room, pt sitting up in chair with visitor at bedside. Pt states he is doing well. He still plans on going to [facility] on 05/02 for outpt therapy. Pt denies any further homegoing needs.
[2022-04-30 14:35] VITALS: BP 141/63; PULSE 55; RESP 18; TEMP 36.6; O2SAT 99
[2022-04-30] MEDS: HYDROcodone Bitartrate/Apap 5/325 Tablet PO (16:21)
[2022-04-30 20:30] VITALS: BP 149/60; PULSE 59; RESP 17; TEMP 37.1; O2SAT 95
[2022-05-01 02:30] VITALS: BP 159/70; PULSE 61; RESP 18; TEMP 37.1; O2SAT 95
[2022-05-01] MEDS: HYDROcodone Bitartrate/Apap 5/325 Tablet PO (05:47)
[2022-05-01 07:00] LABS: Hematocrit 33.5 % (40-54); Hemoglobin 11.9 g/dL (13.0-16.5); Mean Corp Hgb Conc 35.5 g/dL (32-36); Mean Corpuscular Hgb 30.9 pg (27.0-32.0); Mean Platelet Vol. 9.7 fl (6.2-12.0); Platelet Count 195 K/mm3 (150-450); RBC Distribution Width CV 13.2 % (11.6-14.6); RBC Distribution Width SD 41.7 fl (35.1-43.9); Red Blood Count 3.85 M/mm3 (4.6-6.2); White Blood Count 12.6 K/mm3 (4.4-11.0)
--- NOTE | 2022-05-01 07:30 | PCM.PN.ORT ---
Subjective Subjective Feeling okay today pain controlled does not feel confused this morning, he feels the [place] is better for him than the oxycodone. Objective Data Objective Data Vital Signs: Vital Signs Temp Pulse Resp BP Pulse Ox O2 Del Method O2 Flow Rate 98.8 F 61 18 159/70 H 95 Room Air 4 05/01/22 02:30 05/01/22 02:30 05/01/22 02:30 05/01/22 02:30 05/01/22 02:30 05/01/22 02:30 04/30/22 10:00 Oxygen Flow Rate (L/min) 4 Oxygen Delivery Method Room Air Weight: 218 lb 7 oz Body Mass Index (BMI) 28.0 Intake & Output: Intake and Output for Last 24 Hours 04/29/22 04/30/22 05/01/22 23:59 23:59 23:59 Intake Total 2249.92 / 2689.92 2292.08 / 2892.08 900 / 900 Balance 2249.92 / 2689.92 2292.08 / 2892.08 900 / 900 Lab / Micro Data Result Diagrams: 05/01/22 06:13 04/30/22 05:45 Labs: Laboratory Results - last 24 hr 05/01/22 06:13: WBC 12.6 H, RBC 3.85 L, Hgb 11.9 L, Hct 33.5 L, MCV 87.0, MCH 30.9, MCHC 35.5, RDW Std Deviation 41.7, RDW Coeff of Lyndsey 13.2, Plt Count 195, MPV 9.7 Micro: Microbiology 04/23/22 13:21 Swab (Method) Nasal Screen MRSA/MSSA - Final Physical Exam Const alert, oriented x3 and no apparent distress Extremity Extremity Narrative: Right knee dressing clean dry and intact he does have a joint effusion of the right knee which is not uncommon after joint replacement no signs of infection or blood clot neurovascular intact compartment soft Assessment & Plan Assessment/Plan (1) S/P total knee arthroplasty: PLAN: Plan DC home today PT OT weightbearing as tolerated DVT prophylaxis resume preoperative Eliquis dosing discussed with PCP regarding recent medication adjustments preoperatively which she feels has contributed to his confusion Follow-up in the office 2 weeks
--- NOTE | 2022-05-01 07:33 | DCINST_ITS ---
Discharge Instructions Diet Discharge Diet: No restrictions Dressing / Incision Call your doctor if you observe: Shortness of breath and Chest pain Additional Dressing/Incision Instructions:: Ice and elevate lower extremities 2 weeks while not ambulating. Ambulation is encouraged. Weight bearing as tolerated. Use assistive devise for stability. Encourage FULL knee extension and flexion 1 time EVERY time you get up and down and MULTIPLE times per day. No showering 72 hours after surgery. Begin showering postop day #3. Remove the dressing prior to shower and gently wash with warm water and antibacterial soap then pat dry and place abdominal pad (or plain gauze) and STEFANI hose over top. This is to be done daily. Do not submerge for 3 weeks. If not showering daily after the initial 72 hours then you must clean incision and change dressing daily. Do not allow animals near the incision area. Keep clean. Follow anti- coagulation recommendations as prescribed. Do not take any NSAIDs while on blood thinner. Do not take any additional narcotic pain medication other than what was prescribed on your surgery day without discussing with physician. Narcotic medication can be addictive. Do not drink alcohol while taking narcotics. Supplement narcotic prescription with acetaminophen 1000 mg 4 times a day. Start physical therapy. If you are not currently scheduled for physical therapy or you are unsure of appointment time please call office [facility] to arrange. Call Dr. Bhandari with any concerns. Follow Up Care Please Follow Up With: Marquez Bhandari DO When: 2 weeks Test Results: Test results from this visit will be discussed in further detail at your follow- up appointment, if applicable. Discharge Plan Admission Admit Date/Time: 04/30/22 08:18 Primary Reason for Your Visit: Right total knee arthroplasty Attending Provider: Marquez Bhandari Primary Care Provider: Too Couch Discharge Orders/Prescriptions Prescriptions: New hydrocodone-acetaminophen 5-325 mg tablet 1 - 2 tab PO Q4H PRN (Reason: pain) 7 Days Qty: 60 0RF Continued grape seed extract [Grape Seed] 50 mg capsule 50 mg PO DAILY diltiazem HCl 180 mg capsule,extended release 24 hr 180 mg PO BID Eliquis 5 mg tablet 5 mg PO BID lisinopril 20 mg tablet 10 mg PO DAILY Referrals / Follow Up: Too Couch MD [Primary Care Provider] - Disposition Disposition (needs filled in before D/C Order can be placed): Home, Self Care
--- NOTE | 2022-05-01 07:37 | DS.PCM_ITS ---
Providers Date of Admission: 04/30/22 Primary Care Physician: Dr. Too Couch MD Reason For Visit: RT LAP ROBOTIC TOTAL KNEE Diagnosis Discharge Diagnosis (1) S/P total knee arthroplasty: Status: Acute Code(s): Z96.659 - Presence of unspecified artificial knee joint Plan DC home today PT OT weightbearing as tolerated DVT prophylaxis resume preoperative Eliquis dosing discussed with PCP regarding recent medication adjustments preoperatively which she feels has contributed to his confusion Follow-up in the office 2 weeks Medications at Discharge Home Medications grape seed extract 50 mg capsule (Grape Seed) 50 mg PO DAILY SUPPLEMENT 03/12/22 lisinopril 20 mg tablet 10 mg PO DAILY BLOOD PRESSURE 04/24/22 apixaban 5 mg tablet (Eliquis) 5 mg PO BID Check with primary doctor 04/29/22 diltiazem HCl 180 mg capsule,24 hr,extended release 180 mg PO BID Check with primary doctor 04/29/22 hydrocodone-acetaminophen 5-325mg 5mg-325mg 1 - 2 tab PO Q4H PRN pain 7 days #60 tabs 05/01/22 Hospital Course Summary of Care Provided Hospital Course: Who has long history of degenerative joint disease to the knee who has failed conservative treatment and wished to undergo elective total knee arthroplasty. Patient underwent the aformentioned procedure on the admission date without any intraoperative complications. Patient did receive pre-and postoperative antibiotics which were discontinued within 23 hours postoperatively. Patient did receive spinal anesthesia as well as an adductor canal block postoperatively. pain was controlled with IV and transition to p.o. pain medication Patient will be discharged home with [place] 5/325 1-2 tabs Q 4 hrs. prn pain as he felt the oxycodone made him delusional. Patient had minimal intraoperative blood loss and 2gm tranexamic acid was administered there was no need for postoperative blood transfusion Patients vital signs remained stable. Patient was started on both mechanical and chemical DVT per prophylaxis postoperatively in the form of SCDs STEFANI hose and Eliquis 5 mg twice daily (his preoperative dose )for which she will continue post hospital discharge. thigh high stefani hose placed over top of the meplix silver dressing. This should be removed 72 hrs post operatively and showering begun daily at that time with warm water and antibacterial soap. not to submerge for 3 weeks. To change dressing daily after first dressing change. Patient will follow-up in the office in 2 weeks. No intrahospital complications. Weight / BMI Weight Weight: 218 lb 7 oz Body Mass Index (BMI) 28.0 ABG / Lab / Microbiology Data Result Diagrams: 05/01/22 06:13 04/30/22 05:45 Laboratory: Laboratory Results - last 24 hr 05/01/22 06:13: WBC 12.6 H, RBC 3.85 L, Hgb 11.9 L, Hct 33.5 L, MCV 87.0, MCH 30.9, MCHC 35.5, RDW Std Deviation 41.7, RDW Coeff of Lyndsey 13.2, Plt Count 195, MPV 9.7 Microbiology: Microbiology 04/23/22 13:21 Swab (Method) Nasal Screen MRSA/MSSA - Final D/C Instructions Discharge Diet: No restrictions Call your doctor if you observe: Shortness of breath and Chest pain Additional Dressing/Incision Instructions: Ice and elevate lower extremities 2 weeks while not ambulating. Ambulation is encouraged. Weight bearing as tolerated. Use assistive devise for stability. Encourage FULL knee extension and flexion 1 time EVERY time you get up and down and MULTIPLE times per day. No showering 72 hours after surgery. Begin showering postop day #3. Remove the dressing prior to shower and gently wash with warm water and antibacterial soap then pat dry and place abdominal pad (or plain gauze) and STEFANI hose over top. This is to be done daily. Do not submerge for 3 weeks. If not showering daily after the initial 72 hours then you must clean incision and change dressing daily. Do not allow animals near the incision area. Keep clean. Follow anti- coagulation recommendations as prescribed. Do not take any NSAIDs while on blood thinner. Do not take any additional narcotic pain medication other than what was prescribed on your surgery day without discussing with physician. Narcotic medication can be addictive. Do not drink alcohol while taking narcotics. Supplement narcotic prescription with acetaminophen 1000 mg 4 times a day. Start physical therapy. If you are not currently scheduled for physical therapy or you are unsure of appointment time please call office [facility] to arrange. Call Dr. Bhandari with any concerns. Please Follow Up With: Marquez Bhandari DO When: 2 weeks Meaningful Use Info Meaningful Use Diagnoses (Choose all that apply): None applicable Discharge Plan Admission Admit Date/Time: 04/30/22 08:18 Primary Reason for Your Visit: Right total knee arthroplasty Attending Provider: Marquez Bhandari Primary Care Provider: Too Couch Discharge Orders/Prescriptions Prescriptions: New hydrocodone-acetaminophen 5-325 mg tablet 1 - 2 tab PO Q4H PRN (Reason: pain) 7 Days Qty: 60 0RF Continued grape seed extract [Grape Seed] 50 mg capsule 50 mg PO DAILY diltiazem HCl 180 mg capsule,extended release 24 hr 180 mg PO BID Eliquis 5 mg tablet 5 mg PO BID lisinopril 20 mg tablet 10 mg PO DAILY Referrals / Follow Up: Too Couch MD [Primary Care Provider] - Disposition Disposition (needs filled in before D/C Order can be placed): Home, Self Care
[2022-05-01 08:32] VITALS: BP 152/65; PULSE 58; RESP 18; TEMP 36.5; O2SAT 98
[2022-05-01] MEDS: Lisinopril 10 MG Tablet PO (08:36)
[2022-05-01] MEDS: Senna/Docusate Sodium 1 Tablet 2 TABLET PO (08:36)
[2022-05-01] MEDS: dilTIAZem CD 180 MG Capsule PO (08:36)
[2022-05-01] MEDS: APIXABAN 5 MG TABLET PO (08:36)
[2022-05-01 10:09] VITALS: O2SAT 97
== END 2022-05-01 10:53 | disposition home or self-care (01) | DRG 470 ==
LOC: MS3 08:48
PROVIDERS: Physician Assistant Medical; Admitting Provider Orthopaedic Surgery; PCP Family Medicine; Referring Provider Orthopaedic Surgery; Visit Provider Orthopaedic Surgery
PROC: 0SRC0JZ Replacement of Right Knee Joint with Synthetic Substitute, Open Approach (ICD-10-PCS; CPT 27447; principal; 2022-04-29 12:30)
DX: M17.0 Bilateral primary osteoarthritis of knee (principal); M71.22 Synovial cyst of popliteal space [Baker], left knee; Z79.01 Long term (current) use of anticoagulants; Z79.899 Other long term (current) drug therapy; Z87.891 Personal history of nicotine dependence; Z96.652 Presence of left artificial knee joint
CPT/HCPCS: 36415; 73560; 80048; 82962; 82985; 85027; 86850; 86900; 86901; 87081; 88305; 88311; 93005; 97110; 97116; 97162; 97166; 97530; 97535; 99251; C1776; J7120; G0463; J2405; J3475; J3490

== ENCOUNTER 2022-05-10 15:41 | Emergency (ER) | payer MEDICARE, OTHER, SELFPAY ==
[2022-05-10 15:42] VITALS: BP 144/108; PULSE 141; RESP 18; TEMP 36.9; O2SAT 100; BMI 28.8
--- NOTE | 2022-05-10 16:01 | EKG12_ITS ---
Test Reason : A FLUTTER Blood Pressure : / mmHG Vent. Rate : 141 BPM Atrial Rate : 282 BPM P-R Int : 000 ms QRS Dur : 100 ms QT Int : 280 ms P-R-T Axes : 264 -46 168 degrees QTc Int : 428 ms Atrial flutter with 2:1 A-V conduction Left axis deviation Pulmonary disease pattern Minimal voltage criteria for LVH, may be normal variant ( Gerry product ) Nonspecific ST and T wave abnormality Abnormal ECG Confirmed by ROSEMARY LUND, CHRISSY ([id number]), brands editor SERENA PAREDES ([id number]) on 05/14/2022 11:10:45 AM Referred By: MARY Confirmed By:GENESIS RILEY MD
--- NOTE | 2022-05-10 16:03 | EX.ED.DYSGE1 ---
HPI History of Present Illness Chief Complaint: Palpitations Informant: patient Onset/Context/Timing Onset: Month(s) Timing: Waxes and wanes Current Severity: Mild Maximum Severity: Moderate Narrative Narrative: Patient presents from the cardiology office secondary to a flutter with RVR. Patient was diagnosed with a flutter a couple months ago. He is on diltiazem and Eliquis. In the office today his heart rate was in the 140s and he was sent to the ER for assistance with rate control. Per cardiology note they will consider outpatient NEAL and cardioversion as needed. Patient denies chest pain. He states sometimes he will feel palpitations, but denies palpitations currently. He did have knee surgery a week and a half ago but has been back on his Eliquis since shortly after the procedure. [facility] Medical History Alcohol use Bilateral primary osteoarthritis of knee BPH (benign prostatic hyperplasia) Cardiology follow-up encounter Erectile dysfunction Essential (primary) hypertension Former smoker History of echocardiogram History of irregular heartbeat History of stress test Hypercalcemia Hyperparathyroidism Kidney stones Leg cramps Recurrent kidney stones Wears glasses Home Medications grape seed extract 50 mg capsule (Grape Seed) 50 mg PO DAILY SUPPLEMENT 03/12/22 [History Last Taken 04/16/22] apixaban 5 mg tablet (Eliquis) 5 mg PO BID Check with primary doctor 04/29/22 [History Last Taken Unknown] diltiazem HCl 180 mg capsule,24 hr,extended release 180 mg PO BID Check with primary doctor 04/29/22 [History Last Taken Unknown] diltiazem HCl 240 mg capsule,extended release 24 hr (Cardizem CD) 240 mg PO BID #60 caps 05/10/22 [Rx Last Taken Unknown] hydrochlorothiazide 25 mg tablet 25 mg PO DAILY 05/10/22 [History Last Taken Unknown] potassium chloride 20 mEq tablet,extended release 20 meq PO BID #6 tabs 05/10/22 [Rx Last Taken Unknown] Allergy/AdvReac Type Severity Reaction Status Date / Time No Known Allergies Allergy Verified 05/10/22 15:42 Family History Father Hypertension Brother Hypertension Sister Hypertension Daughter Hypertension Surgical History H/O lithotripsy History of parathyroid surgery S/P tonsillectomy Social History household members: spouse Smoking Status: Former smoker how long ago did patient quit smokin-9 years ago alcohol intake: current alcohol intake frequency: a few times a month Alcohol type: beer substance use type: does not use caffeine: Yes Type: coffee Number of servings: 2 what type of physical activity do you participate in: walking and other details: golf, [employer] ROS ROS ED Constitutional Constitutional ED: Denies chills or fever(s) Eyes Eyes: Denies change in vision or discharge from eye(s) ENT ENT ED: Denies discharge from eye(s), rhinorrhea or sore throat Cardiovascular Cardiovascular: Reports palpitations; Denies chest pain Respiratory/Chest Respiratory/Chest: Denies cough or dyspnea Gastrointestinal Gastrointestinal: Denies abdominal pain, diarrhea, nausea or vomiting Genitourinary Genitourinary ED: Denies dysuria Musculoskeletal Musculoskeletal: Denies back pain or extremity pain Integumentary Denies Abrasions or rash Neurologic Neurologic: Denies headache(s) or weakness Psychiatric Psychiatric: Denies anxiety or depression Allergic/Immunologic Allergic/Immunologic ED: Denies lip swelling or urticaria EXAM Physical Exam Const Vital Signs: 05/10/22 15:42 05/10/22 16:01 05/10/22 16:26 Temperature 98.5 F Temperature Source Temporal Pulse Rate 141 H 94 Respiratory Rate 18 Respiratory Pattern Normal Blood Pressure 144/108 H 136/83 H Blood Pressure Mean 120 100 Pulse Ox 100 Oxygen Delivery Method Room Air 05/10/22 16:52 Temperature Temperature Source Pulse Rate 74 Respiratory Rate 14 Respiratory Pattern Blood Pressure 161/85 H Blood Pressure Mean 110 Pulse Ox 96 Oxygen Delivery Method Room Air Positive well nourished and well developed General Appearance ED: well developed HEENT Reports normocephalic and head/scalp atraumatic Eyes PERRL and EOMs intact bilaterally Neck supple Chest Wall inspection of chest normal and palpation of chest normal Resp normal respiratory effort and clear to auscultation bilaterally Cardio regular rhythm Rate: tachycardic GI normal to inspection, nondistended, normoactive bowel sounds Palpation: soft Extremity normal to inspection Neuro oriented x3 and no sensory deficits noted Sensorium / Orientation: alert Motor Exam: strength 5/5 throughout Psych mental status grossly normal Skin no rashes or lesions noted MDM MDM MDM Narrative Medical decision making narrative: Patient placed on equipment monitor phototypesetting. EKG and labs obtained along with portable chest x-ray. Lab Data Attestation: I reviewed the patient's lab results. Labs: Laboratory Results - last 24 hr 05/10/22 05/10/22 16:10 16:10 WBC 7.9 RBC 4.30 L Hgb 12.6 L Hct 39.1 L MCV 90.9 MCH 29.3 MCHC 32.2 RDW Std Deviation 45.4 H RDW Coeff of Lyndsey 14.0 Plt Count 354 MPV 9.1 Immature Gran % (Auto) 0.500 Neut % (Auto) 65.7 Lymph % (Auto) 22.3 [place] % (Auto) 9.5 Eos % (Auto) 1.6 Baso % (Auto) 0.4 Absolute Neuts (auto) 5.2 Absolute Lymphs (auto) 1.76 Nucleated RBC % 0 Sodium 138 Potassium 3.3 L Chloride 100 Carbon Dioxide 30.0 Anion Gap 8 BUN 31 H Creatinine 1.59 H Estim Creat Clear Calc 48.11 Est GFR (MDRD) Af Amer 55 L Est GFR (MDRD) Non-Af 46 L BUN/Creatinine Ratio 19.5 Glucose 100 Calcium 9.3 Magnesium 2.2 TSH 1.11 Radiography Chest X-Ray - ED: 1 View, Read by Radiologist, Normal, Heart, Lungs and Mediastinum Diagnostic Testing: Clinical Impression(s) from Imaging Studies Chest X-Ray 05/10/22 16:13 IMPRESSION: No acute abnormal cardiopulmonary finding. Electronically Signed: Bruce De La Cruz MD at 16:32 EST , EKG Initial EKG: Attestation: I personally reviewed and interpreted this EKG as follows: Interpretation: Atrial Flutter (Atrial flutter with 2-1 conduction. Ventricular rate 141. No acute ischemia.) Treatment and Re-Evaluation Narrative: Patient given 20 mg of IV Cardizem. This improves his heart rate down to the 70s. Lab work reveals normal CBC other than mild anemia with hemoglobin 12.6. Chemistry studies significant for potassium of 3.3. This is replaced orally. BUN is 31 and creatinine is 1.59. TSH and magnesium are both normal. Patient states that he is currently on diltiazem 180 mg extended release twice daily at home. He states he feels like his heart rate is fairly well controlled shortly after he takes the medication, but it wears off before he is due for his next dose. I spoke with Dr. Matthews, on-call for cardiology. He asked that we increase the patient's Cardizem to 240 mg twice daily. Patient was given a dose of oral potassium here and I will write him for 3 additional days of potassium as well. Addendum: At this time patient's heart rate is maintaining around 120. Oral Cardizem has been ordered but is not yet up from the pharmacy. This will take some time to kick in once he is given the medication. In light of this I will give him 10 mg of IV Cardizem at this time as well. Discharge Plan Triage Chief Complaint: Palpitations ED Provider: Sheryl Arizmendi Dx/Rx/DC Orders Clinical Impression: Atrial flutter with rapid ventricular response Instructions: ED Atrial Flutter Prescriptions: New diltiazem HCl [Cardizem CD] 240 mg capsule,extended release 24hr 240 mg PO BID Qty: 60 0RF potassium chloride 20 mEq tablet extended release 20 meq PO BID Qty: 6 0RF No Action grape seed extract [Grape Seed] 50 mg capsule 50 mg PO DAILY hydrochlorothiazide 25 mg tablet 25 mg PO DAILY diltiazem HCl 180 mg capsule,extended release 24 hr 180 mg PO BID Eliquis 5 mg tablet 5 mg PO BID Primary Care Provider: Too Couch Referrals: Bruce Wolff MD [Med Staff - Active Staff] - 1 Week Too Couch MD [Primary Care Provider] - Activity Restrictions/Additional Instructions: Monitor your heart rate couple times a day and call the cardiology office next week with an update. Disposition Disposition: Home, Self Care
[2022-05-10] MEDS: dilTIAZem 25 MG/5 ML Vial 20 MG IV BOLUS (16:07)
[2022-05-10] MEDS: 0.9% Normal Saline 1,000 ML 150 ML IV (16:07)
--- NOTE | 2022-05-10 16:13 | RAD_ITS ---
STUDY: X-RAY CHEST REASON FOR EXAM: Male, 71 years old. Palpitations TECHNIQUE: Portable, upright, AP chest x-ray COMPARISON: 04/16/2022 FINDINGS: The lungs are clear and expanded. There is no demonstrated pleural abnormality. Normal size heart. Normal mediastinum and lyn. Normal visualized pulmonary arteries. There is atherosclerotic calcification of the aortic arch with tortuosity. There is no demonstrated abnormality of the visualized soft tissue structures of the upper abdomen. RAD/Chest 1 View (Portable) IMPRESSION: No acute abnormal cardiopulmonary finding. Electronically Signed: Bruce De La Cruz MD at 16:32 EST ,
[2022-05-10 16:25] LABS: Absolute Lymphocyte Count 1.76 X10^3/uL (0.83-4.51); Absolute Neutrophil Count 5.2 X10^3/uL (2.0-7.7); Basophil# 0.03 X10^3/uL; Basophil% 0.4 % (0-1); Eosinophil# 0.13 X10^3/uL; Eosinophils% 1.6 % (0-5); Hematocrit 39.1 % (40-54); Hemoglobin 12.6 g/dL (13.0-16.5); Lymphocyte # 1.76 X10^3/ul (0.83-4.51); Lymphocyte % 22.3 % (19-41); Mean Corp Hgb Conc 32.2 g/dL (32-36); Mean Corpuscular Hgb 29.3 pg (27.0-32.0); Mean Corpuscular Volume 90.9 fL (80-94); Mean Platelet Vol. 9.1 fl (6.2-12.0); Monocyte# 0.75 X10^3/uL; Monocyte% 9.5 % (0-10); NRBC Flagged by Analyzer 0 % (0-5); Neutrophil % 65.7 % (47-70); Platelet Count 354 K/mm3 (150-450); RBC Distribution Width SD 45.4 fl (35.1-43.9); White Blood Count 7.9 K/mm3 (4.4-11.0)
[2022-05-10 16:26] VITALS: BP 136/83; PULSE 94
[2022-05-10 16:52] VITALS: BP 161/85; PULSE 74; RESP 14; O2SAT 96
[2022-05-10 16:53] LABS: Anion Gap 8 (5-15); BUN 31 mg/dL (7-18); BUN/Creat Ratio 19.5 RATIO (10-20); Calcium,Total 9.3 mg/dL (8.5-10.1); Chloride 100 mmol/L (98-107); Creatinine, Serum 1.59 mg/dL (0.70-1.30); EST Glomerular Filtration Rate 46 mL/min (>60); Est Glom Filt Rate - Afr Amer 55 mL/min (>60); Estimated Creatinine Clearance 48.11 ml/min; Glucose 100 mg/dL (74-106); Magnesium 2.2 mg/dL (1.6-2.6); Potassium 3.3 mmol/L (3.5-5.1); Sodium Level 138 mmol/L (136-145); Thyroid Stim Hormone (TSH) 1.11 uIU/mL (0.358-3.74)
[2022-05-10] MEDS: Potassium Chloride Oral Tablet 20 MEQ 40 MEQ PO (17:03)
[2022-05-10] MEDS: dilTIAZem 25 MG/5 ML Vial 10 MG IV BOLUS (17:54)
[2022-05-10] MEDS: dilTIAZem CD 240 MG Capsule PO (17:55)
[2022-05-10 18:02] VITALS: BP 159/92; PULSE 72; RESP 16; O2SAT 94
== END 2022-05-10 18:08 | disposition home or self-care (01) ==
PROVIDERS: Emergency Provider Emergency Medicine; PCP Family Medicine; Visit Provider Emergency Medicine
DX: I48.92 Unspecified atrial flutter (principal); I10 Essential (primary) hypertension; Z87.891 Personal history of nicotine dependence; R00.2 Palpitations
CPT/HCPCS: 71045; 80048; 83735; 84443; 85025; 93005; 96360; 96361; 99284; J7030

== ENCOUNTER → 2022-05-30 | Outpatient (CLI) | payer MEDICARE, OTHER, SELFPAY ==
[2022-05-30 12:06] LABS: Anion Gap 4 (5-15); BUN 28 mg/dL (7-18); BUN/Creat Ratio 20.6 RATIO (10-20); Calcium,Total 9.3 mg/dL (8.5-10.1); Chloride 104 mmol/L (98-107); Creatinine, Serum 1.36 mg/dL (0.70-1.30); EST Glomerular Filtration Rate 54 mL/min (>60); Est Glom Filt Rate - Afr Amer 66 mL/min (>60); Glucose 108 mg/dL (74-106); Potassium 3.8 mmol/L (3.5-5.1); Sodium Level 140 mmol/L (136-145)
== END | disposition home or self-care (01) ==
LOC: LAB 11:09
PROVIDERS: PCP Family Medicine; Visit Provider Nurse Practitioner Family
DX: Z01.810 Encounter for preprocedural cardiovascular examination (principal); I48.92 Unspecified atrial flutter
CPT/HCPCS: 36415; 80048

== ENCOUNTER → 2022-07-30 | Outpatient (CLI) | payer MEDICARE, OTHER, SELFPAY ==
[2022-06-10 09:53] VITALS: BMI 28.3
--- NOTE | 2022-06-10 18:53 | PCM.HP.BLA ---
History and Physical Date of Admission: 06/11/22 [facility] [address] [place], [place] [address] OFFICE VISIT Date of Service:? 05/30/22 MR#: [id number] Acct: [id number] Name:JOI BURT Rep #: [id number] : 1950 Provider: ?JENNY Carrington Age/Sex:? 72/M ?Location: [facility] Status: Signed HPI HPI History of Present Illness Surgical H&P: Yes Details: Joi Quintana is a 72 yr old male that presents to day for a follow up of atrial flutter.? He established with us for a pre-operative cardiac assessment for an abnormal EKG.? He had a pharmacologic stress test which was negative for ischemia.? Echocardiogram demonstrated normal systolic function with an estimated ejection fraction of 60%.? Mild aortic valve calcification.? He was scheduled to undergo his knee surgery however on presentation he was noted to be in atrial flutter.? It was noted that he was slightly hypokalemic with a potassium of 3.3.? This was a new finding for him.? He was sent to the emergency room.? He was started on Eliquis and diltiazem.? His nifedipine was discontinued.? He underwent knee surgery and ultimately restarted Eliquis therapy. He was seen with primary care provider on 05/07/2022 and noted to be in atrial flutter at a rate of 145 bpm. At cardiology office appointment on 05/10/2022, he continued to be in atrial flutter at an elevated rate.? He was sent to the emergency room to assist with rate control.? His diltiazem was increased.? He continued of elevated rate upon discharge from Emergency Department and metoprolol tartrate was added. He resumed Eliquis on 04/30/2022 after knee surgery and has not missed or forgotten any dosages. He denies chest, arm, jaw, or neck discomfort.? He states palpitations.? He denies bilateral lower extremity edema.? He denies claudication.? He denies shortness of breath with activity, shortness of breath at rest, orthopnea, or PND.? He denies chronic cough.? He denies significant, sudden weight gain.? He denies lightheadedness, dizziness, near-syncope, or syncope.? He denies blood in urine, blood in stool, or epistaxis.? He denies fever or chills.? He denies myalgia.? His exercise level is reduced on account of knee surgery. He states intermittent snoring. Overall, he feels well. He states in the morning prior to medication his rate can be as elevated as 130 bpm.? This does cause palpitations and generalized fatigue. He states by evening his rate increases prior to evening medication that also results in palpitations and fatigue. Intake Vital Signs ? 05/10/2215:42 05/23/2215:40 05/30/2209:58 05/30/2209:58 Height 6 ft 2 in 6 ft 2 in 6 ft 2 in 6 ft 2 in Weight: ? ? 221 lb ? BMI ? ? 28.3 ? BP ? ? 136/81 H ? Blood Pressure Location ? ? Lt brachial ? Position ? ? Sitting ? Respiration ? ? 14 ? Pulse ? ? 68 ? Pulse Source ? ? Monitor ? Pulse Oximetry (%) ? ? 97 ? Intake Visit Reasons:?Discuss with JR Us Bureau Director Required: No Is patient in pain?: No Allergies No Known Allergies Allergy (Verified 05/30/22 09:58) Medications apixaban 5 mg tablet (Eliquis) 5 mg PO BID Check with primary doctor 04/29/22 [History Confirmed 05/30/22] diltiazem HCl 240 mg capsule,extended release 24 hr (Cardizem CD) 240 mg PO BID #60 caps 05/10/22 [Rx Confirmed 05/30/22] hydrochlorothiazide 25 mg tablet 25 mg PO DAILY 05/10/22 [History Confirmed 05/30/22] metoprolol tartrate 50 mg tablet 50 mg PO BID 05/13/22 [History Confirmed 05/30/22] PFSH Medical History?(Reviewed 05/30/22 @ 10:25 by Juan Ramon Carrington SILVERWARE BUFFING MACHINE OPERATOR, SILVERWARE BUFFING MACHINE OPERATOR-C) Alcohol use Bilateral primary osteoarthritis of knee BPH (benign prostatic hyperplasia) Cardiology follow-up encounter Erectile dysfunction Essential (primary) hypertension Former smoker History of echocardiogram History of irregular heartbeat History of stress test Hypercalcemia Hyperparathyroidism Kidney stones Leg cramps Recurrent kidney stones Wears glasses Surgical History?(Reviewed 05/30/22 @ 10:25 by Juan Ramon Carrington NP, SILVERWARE BUFFING MACHINE OPERATOR-C) H/O lithotripsy History of parathyroid surgery S/P tonsillectomy Family History?(Reviewed 05/30/22 @ 10:25 by Juan Ramon Carrington NP, SILVERWARE BUFFING MACHINE OPERATOR-C) Father HypertensionBrother HypertensionSister HypertensionDaughter Hypertension Social History?(Reviewed 05/30/22 @ 10:25 by Juan Ramon Carrington NP, SILVERWARE BUFFING MACHINE OPERATOR-C) household members:? spouse Smoking Status:? Former smoker how long ago did patient quit smoking:? 8-9 years ago alcohol intake:? current alcohol intake frequency: a few times a month Alcohol type: beer substance use type:? does not use caffeine:? Yes Type: coffee Number of servings: 2 what type of physical activity do you participate in:? walking and other details: golf, [employer] bar ROS Const Const: Positive for fatigue; Negative for weakness, body ache, fever(s) or chills ENT ENT: Negative for dizziness or Nosebleed/epistaxis Cardio Chest Pain: No Palpitations: Yes Edema: None Muscle aches with walking: None Resp Respiratory: Negative for SOB with activity, SOB at rest, SOB orthopnea\SOB lying down, Cough or paroxysmal nocturnal dyspnea GI GI: Negative nausea, vomiting blood/hematemesis, bright, red blood in stools or black,tarry stools : Negative for hematuria or frequent nighttime urination/ nocturia Musc Musc: Positive for joint pain (knee); Negative for muscle aches/ myalgia Skin Skin: Negative non-healing lesions or rash Neuro Neuro: Negative for dizziness, lightheadedness, near syncope, syncope, orthostatic symptoms or weakness Endo Endo: Positive for fatigue Allergy Allergy/Immunology: Negative for rash Cardiology Exam Const Appearance: cooperative, healthy appearing, comfortable and no acute distress Nutritional Appearance: well nourished and overweight Orientation: alert, awake and oriented x3 Head Head: normal to inspection Ears: hearing grossly normal bilaterally Nose: external nose normal Face and Sinus: face symmetric Mouth: moist mucous membranes Eyes General: appearance normal, both eyes and all related structures Eyelids: eyelids normal EOM: EOM intact bilaterally Neck Neck: normal visual inspection and no JVD Carotids: normal carotid upstroke Chest Chest inspection: normal inspection of the chest, symmetric chest movement and normal respiratory effort; Negative cough Auscultation: Bilateral: Clear to Auscultation Cardio Rate: regular rate Rhythm: regular rhythm Heart sounds: S1 normal and S2 normal; Negative rub, gallop or murmur GI GI: normal to inspection Neuro General: patient alert, patient awake, patient oriented x3 and CN's II-XI intact bilaterally Skin Skin: no rashes or lesions noted Extremities Pulses: Normal: Right Posterior Tibial Pulse, Left Posterior Tibial Pulse, Right Radial Pulse and Left Radial Pulse Lower Extremity Edema: None: Bilateral Psych Psychological: normal affect Supplemental Info Supplemental Information Stress Test Report Date: 03-22-2022 Procedure: Pharmacologic stress nuclear imaging study? Indications: Abnormal ECG; preoperative cardiovascular evaluation Consent: Per the patient Procedure: The patient underwent pharmacologic (Regadenoson 0.4mg ) evaluation with a peak heart rate of 86 beats per minute (58%predicted maximal heart rate) and a resting blood pressure of 182/80 mmHg and a peak blood pressure of 182/80 mmHg. The baseline ECG demonstrated sinus bradycardia; septal NV-indeterminate age-cannot be excluded; nonspecific ST/T wave abnormality.? The peak pharmacologic ECG demonstrated no obvious ECG changes. There was a rare PAC pretest and a rare PVC posttest. There was no complaint of chest discomfort during pharmacologic infusion or recovery. The examination was discontinued secondary to completion of protocol. Impression: 1.? Pharmacologic (Regadenoson) evaluation 2.? Peak pharmacologic ECG with no obvious ECG changes. 3.? There was a rare PAC pretest and a rare PVC posttest. 4.? Nuclear images pending Myocardial perfusion imaging study: Technique: The patient was injected with 11.4 millicuries of technetium 99m Cardiolite and subsequently rest SPECT Cardiolite nuclear imaging was obtained in the horizontal long, vertical long, and short axis views. The patient underwent pharmacologic (Regadenoson) evaluation with a peak heart rate of 86 beats per minute (58% percent predicted maximal heart rate) and a resting blood pressure of 182/80 mmHg and a peak blood pressure of 182/80 mmHg. The patient was injected with 33.7 millicuries of technetium 99m Cardiolite and subsequently stress SPECT Cardiolite nuclear imaging was obtained in the horizontal long, vertical long, and short axis views.? A gated Cardiolite study at peak stress was not obtained. Interpretation: Rest and stress SPECT Cardiolite nuclear imaging status post realignment, normalization, and attenuation correction demonstrate a small area of subtle diminished tracer uptake near the apical segments without significant change between rest and stress appearing compatible with soft tissue attenuation/artifact/physiologic apical thinning. Impression: 1.? Rest and stress SPECT Cardiolite nuclear imaging demonstrate a small area of subtle diminished tracer uptake near the apical segments without significant change between rest and stress appearing compatible with soft tissue attenuation/artifact/physiologic apical thinning with no myocardial perfusion changes considered diagnostic for associated stress-induced myocardial ischemia. 2.? The gated Cardiolite study was not obtained. Echocardiogram 03/2022: Left ventricular systolic function is normal. The estimated ejection fraction is 60 %. There is mild mitral annular calcification. Trivial mitral valve insufficiency. Trivial tricuspid valve insufficiency. Mild diffuse aortic valve thickening. Mild focal aortic valve calcification. Mild (1+) pulmonic valve insufficiency. Unable to estimate RV systolic pressure due to insufficient tricuspid regurgitant envelope. No evidence for diastolic dysfunction. Labs: ?? ? No Data to Display Diagnostics: ?? ? Electrocardiogram ? Echocardiogram ? Stress Test NM ? Stress Test ? Chest X-Ray ? Pulmonary: ?? ? No Data to Display Assessment and Plan Assessment and Plan (1) Atrial flutter: ?Status:?Acute ?Plan: His EKG in office continues to show atrial flutter.? His rate in office per EKG is a 67 bpm.? He does have a [id number] 2 score of 2 (Age, HTN).? At next date, his [id number] or was increased to 3 due to age 73.? He we will continue with Eliquis therapy for CVA protection. His echocardiogram in March 2022 showed ejection fraction of 60% and normal left and right atrium size.? His stress test on 03/22/2022 was negative for ischemia and showed sinus bradycardia.? He has been on anticoagulation consistently for at least 4 weeks. Antiarrhythmic and electrophysiology options were reviewed today. His case was also reviewed with Dr. Wolff who also physically evaluated patient.? We will proceed with cardioversion on 06/11/2022.? We will continue to monitor rate and rhythm and adjust medications as necessary.? Depending on his course post cardioversion, further recommendation will be made. He will return to office in 1 week post cardioversion to evaluate rate and rhythm.? Of concern is multiple heart rate lowering medication that may require adjustment post cardioversion. (2) Essential (primary) hypertension: ?Status:?Chronic ?Plan: At this time, he will continue diltiazem, metoprolol, and hydrochlorothiazide therapy.? We will follow this and adjust medication as necessary. ? ? ? Orders: Orders 12 Lead EKG performed by [facility] Today Z01.810 - Encounter for preprocedural cardiovascular examination ? Cardioversion 06/11/22 I48.92 - Unspecified atrial flutter ? Basic Metabolic Profile (BMP) Today I48.92 - Unspecified atrial flutter, Z01.810 - Encounter for preprocedural cardiovascular examination ? Plan Details Additional Comments: Thank you for allowing us to participate in the patients plan of care, if you have any questions please do not hesitate to call. This note was generated using a voice recognition system and there may be incorrect words, spelling or punctuation that were not noted when reviewing the office note prior to saving. Portions of this documentation were copied and pasted from previous office visit notes to provide a cohesive continuity of the history. The note has been reviewed, edited, and updated, as necessary. Follow Up: ? ? 2-3 Months (SILVERWARE BUFFING MACHINE OPERATOR/PA) ? ? 12-15 Months (PFM) Addt'l Comments Endo: 05-30-2022 The patient was independently evaluated/examined. The patient has a history of noting his underlying cardiac rhythm/dysrhythmia especially when it is at an elevated rate.? This appears compatible with his diagnosis of atrial fibrillation/flutter.? He does not have any new acute complaints of ongoing chest discomfort, difficulty breathing, orthopnea, PND, or near syncope/syncope. On examination it is noted that his lungs are clear to auscultation percussion bilaterally.? His cardiovascular examination at this time demonstrated what appeared to be a regular rhythm with a normal S1 and S2.? His abdomen demonstrated positive bowel sounds, soft, nontender.? His lower extremities demonstrated no obvious peripheral pitting edema. His cardiac ECG was reviewed.? It appeared to demonstrate an underlying atrial flutter with a controlled ventricular rate at this time. At the present time it does appear he has an underlying atrial dysrhythmia.? He has been on rate control therapy and anticoagulant therapy. The recommendation has been made for further evaluation with an attempt to regain sinus rhythm with synchronized biphasic DC cardioversion.? The procedure and risk has been discussed with the patient.? He was agreeable to this approach. The patient's case was discussed and reviewed with Juan Ramon Carrington CNP. This note was generated using a voice recognition system and there may be incorrect words, spelling or punctuation that were not noted when reviewing the office note prior to saving. COVID (Procedure Consent) Procedure Criteria Procedure Criteria: Yes Elective The surgeon/proceduralist and patient have discussed in detail the risk of exposure to and/or potential harm posed by the COVID-19 virus with having a surgery/procedure at this time versus the risk of? delaying the surgery/procedure. It is not possible to know either the risk of delaying the surgery or procedure or chance of getting an infection with perfect accuracy, but a joint decision was made between the patient and the surgeon/proceduralist ?to proceed at this time with the scheduled surgery/procedure as indicated on the consent form. Coding Level of Care Code Off vis,est,level 4 Diagnoses Atrial flutter? I48.92 Essential (primary) hypertension? I10 Coding Level of Care Code Off vis,est,level 4 Diagnoses Atrial flutter? I48.92 Essential (primary) hypertension? I10 05/30/22 1228 <Electronically signed by Juan Ramon Carrington SILVERWARE BUFFING MACHINE OPERATOR SILVERWARE BUFFING MACHINE OPERATOR-C> Date Juan Ramon Carrington SILVERWARE BUFFING MACHINE OPERATOR SILVERWARE BUFFING MACHINE OPERATOR-C 05/30/22 1703<Electronically signed by Bruce Wolff MD> Cosigner Signature: Date (if applicable) Bruce Wolff MD CC:? Dr. Too Couch MD ~ Assessment & Plan Addt'l Comments I have examined the patient and the H&P has been reviewed. There are no clinical changes since date of exam. This note was generated using a voice recognition system and there may be incorrect words, spelling or punctuation that were not noted when reviewing the office note prior to saving.
--- NOTE | 2022-06-11 12:50 | PCM.OP.PRO ---
Procedure Report Date of Procedure: 06/11/22 CONSCIOUS SEDATION REPORT DATE OF SERVICE: June 11, 2022 BRIEF HISTORY OF PRESENT ILLNESS: The patient is a 72-year-old male who presented to [facility] for elective outpatient cardioversion due to a history of atrial flutter. The patient denied ever having undergone a prior cardioversion. He denied any prior anesthetic complications. He is systemically anticoagulated at the current time on Eliquis. His last surface echocardiogram demonstrated an ejection fraction of approximately 60%. PHYSICAL EXAMINATION: VITAL SIGNS: Reviewed and were acceptable. GENERAL: The patient is a male, in no apparent distress, speaking in full sentences. HEENT: Normocephalic, atraumatic. Mucous membranes are moist and pink. Good mouth opening noted. Trachea is midline. Good neck mobility. CHEST: S1, S2 irregularly irregular. No murmurs, rubs or gallops were noted. LUNGS: Clear to auscultation bilaterally without appreciable wheezes, rales or rhonchi. ABDOMEN: Soft, nontender, nondistended. Positive bowel sounds. EXTREMITIES: There is no clubbing, cyanosis or edema. ASA Class: II DESCRIPTION OF PROCEDURE: After confirmation of informed consent, the patient's anesthesia plan was reviewed in detail. Propofol was chosen. Risks and benefits were reviewed and the patient agreed to proceed. At 1222, the patient was given 40 mg of propofol. The patient achieved an appropriate level of sedation and was given a 50 joule synchronized cardioversion by Dr. Wolff at the bedside. This was successful in achieving normal sinus rhythm. The patient was monitored until 1235, at which time he reached his baseline mental status and function. The patient tolerated the procedure well. COMPLICATIONS: None ESTIMATED BLOOD LOSS: None RECOMMENDATIONS: Okay to recover in usual fashion. Procedures Pulmonary 9xxxx: [id number] Con Sedation
--- NOTE | 2022-06-11 13:06 | CARDIOVERS ---
Cardioversion Cardioversion: Date: 06-11-2022 Procedure: Synchronized Biphasic DC Cardioversion Indications: Atrial flutter Consent: Per the Patient Anesthesia: per Dr. Couch of pulmonology and critical care medicine with propofol 40 mg IV push total Procedure: Synchronized Biphasic DC Cardioversion: 50 J x 1: Result: Sinus bradycardia; PACs; PVCs Complications: no apparent complications This note was generated with [employer] software. It may contain incorrect words, spelling, and punctuation that were not noted in checking the note before signing.
[2022-07-30 13:32] LABS: Anion Gap 4 (5-15); BUN 33 mg/dL (7-18); BUN/Creat Ratio 24.4 RATIO (10-20); Calcium,Total 9.6 mg/dL (8.5-10.1); Chloride 101 mmol/L (98-107); Creatinine, Serum 1.35 mg/dL (0.70-1.30); EST Glomerular Filtration Rate 55 mL/min (>60); Est Glom Filt Rate - Afr Amer 66 mL/min (>60); Estimated Creatinine Clearance 55.81 ml/min; Glucose 95 mg/dL (74-106); Potassium 4.1 mmol/L (3.5-5.1); Sodium Level 137 mmol/L (136-145)
[2022-07-30 13:39] LABS: Protein, Urine (Random) 44.2 mg/dL (<11.9); Protein:Creat Ratio 213 mg/g CRE (0-200)
== END | disposition home or self-care (01) ==
LOC: CLSP 06-11 10:58 → POLAB3 11:48
PROVIDERS: Nurse Practitioner Family; PCP Family Medicine; Visit Provider Internal Medicine Cardiovascular Disease
DX: I48.92 Unspecified atrial flutter (principal); I70.0 Atherosclerosis of aorta; I34.81 Nonrheumatic mitral (valve) annulus calcification; I49.3 Ventricular premature depolarization; I10 Essential (primary) hypertension; Z79.01 Long term (current) use of anticoagulants; R00.2 Palpitations; Z87.891 Personal history of nicotine dependence
CPT/HCPCS: 36415; 80048; 82570; 84156; 92960; 93005; J7040

== ENCOUNTER → 2022-08-13 | Outpatient (CLI) | payer MEDICARE, OTHER, SELFPAY ==
--- NOTE | 2022-08-13 08:45 | RDU_ITS ---
Reason For Study: HTN Right Renal Artery Left Renal Artery Right renal artery ostium 77.8/19.4 Left renal artery ostium 90.6/21.2 RSV/EDV. PSV/EDV. Right renal artery proximal Left renal artery proximal PSV/EDV 94.2/15.7 PSV/EDV. 77.8/21.2 . Right renal artery mid 114.3/23.0 Left renal artery mid 116.2/23.0 PSV/EDV. PSV/EDV . Right renal artery distal Left renal artery distal 77.9/25.2 125.3/30.3 PSV/EDV. PSV/EDV. Right Renal Parenchyma Left Renal Parenchyma Upper Pole Medula 29.6/5.5 PSV/EDV. Left upper pole medulla 29.1/9.0 Right upper pole medulla EDR .19 . PSV/EDV . Right upper pole medulla R.I. .81 . Left upper pole medulla EDR .31 . Upper Jerome Cortx 28.6/5.5 PSV/EDV. Left upper pole medulla R.I. .69 . Right upper pole cortex EDR .19 . UP Cortex 13.1/4.3 PSV/EDV. Right upper pole cortex R.I. .81 . Left upper pole cortex EDR .33 . Right lower Pole medulla 18.2/4.5 Left upper pole cortex R.I. .67 . PSV/EDV . Left lower Pole medulla 19.7/4.3 Right lower pole medulla EDR .25 . PSV/EDV . Right lower pole medulla R.I. .75 . Left lower pole medulla EDR .22 . Lower Pole Cortex 15.9/5.5 PSV/EDV. Left lower pole medulla R.I. .78 . Right lower pole cortex EDR .35 . Lower Pole Cortx 16.4/6.5 PSV/EDV. Right lower pole cortex R.I. .65 . Left lower pole cortex EDR .4 . Right Renal Hilar Left lower pole cortex R.I. .6 . Right Hilar avg 78.2/16.1 PSV/EDV. Left Renal Hilar Right hilar acceleration time 50 LT Hilar avg 36.8/7.1 PSV/EDV . m/sec. Left hilar acceleration time 50 Right Renal Dimensions m/sec. Right kidney size 12.6 cm . Left Renal Dimensions Right cortical dimension 1.35 cm . Left kidney size 11.6 cm . Left cortical dimension 1.64 cm . Aorta Proximal abdominal aorta 1.46 x 1.42 cm . Proximal abdominal aorta peak systolic velocity is 150.6 cm/sec . Distal abdominal aorta 1.64 x 1.71 cm . Distal abdominal aorta peak systolic velocity is 122.0 cm/sec . Normal renal veins bilat. VL/Renal Artery Duplex Ultrasound Interpretation Summary Maximal aortic diameter distally is 1.64 x 1.71 cm in diameter. Velocities are slightly elevated within the abdominal aorta of undetermined significance. Normal right renal artery velocity with less than 60% stenosis. Normal right renal length 12.6 cm Normal left renal artery velocity with less than 60% stenosis Normal left renal length 11.6 cm Ordering Physician: Ro Rivera Performed By: Rajiv Ball RVT
== END | disposition home or self-care (01) ==
LOC: CVS 08:44
PROVIDERS: PCP Family Medicine; Referring Provider Internal Medicine Nephrology; Visit Provider Internal Medicine Nephrology
DX: I10 Essential (primary) hypertension (principal)
CPT/HCPCS: 93975

== ENCOUNTER → 2022-08-21 | Outpatient (CLI) | payer MEDICARE, OTHER, SELFPAY ==
[2022-08-21 11:43] LABS: PTHIN 40.5 pg/mL (18.4-80.1)
[2022-08-21 11:45] LABS: Albumin, Serum 3.5 g/dL (3.2-5.0); BUN 35 mg/dL (7-18); BUN/Creat Ratio 25.9 RATIO (10-20); Calcium,Total 9.7 mg/dL (8.5-10.1); Chloride 101 mmol/L (98-107); Creatinine, Serum 1.35 mg/dL (0.70-1.30); EST Glomerular Filtration Rate 55 mL/min (>60); Est Glom Filt Rate - Afr Amer 66 mL/min (>60); Glucose 108 mg/dL (74-106); Phosphorus 3.9 mg/dL (2.5-4.9); Potassium 4.7 mmol/L (3.5-5.1); Sodium Level 134 mmol/L (136-145)
== END | disposition home or self-care (01) ==
LOC: LAB 10:59
PROVIDERS: PCP Family Medicine; Referring Provider Internal Medicine Nephrology; Visit Provider Internal Medicine Nephrology
DX: N18.31 Chronic kidney disease, stage 3a (principal); E21.0 Primary hyperparathyroidism
CPT/HCPCS: 36415; 80069; 83970

== ENCOUNTER → 2022-11-18 | Outpatient (CLI) | payer MEDICARE, OTHER, SELFPAY ==
[2022-11-18 15:44] LABS: Albumin, Serum 3.4 g/dL (3.2-5.0); BUN 35 mg/dL (7-18); Calcium,Total 9.6 mg/dL (8.5-10.1); Chloride 105 mmol/L (98-107); Creatinine, Serum 1.46 mg/dL (0.70-1.30); EST Glomerular Filtration Rate 50 mL/min (>60); Est Glom Filt Rate - Afr Amer 61 mL/min (>60); Glucose 118 mg/dL (74-106); Phosphorus 4.1 mg/dL (2.5-4.9); Potassium 4.4 mmol/L (3.5-5.1); Sodium Level 138 mmol/L (136-145)
== END | disposition home or self-care (01) ==
LOC: LAB 14:31
PROVIDERS: PCP Family Medicine; Referring Provider Internal Medicine Nephrology; Visit Provider Internal Medicine Nephrology
DX: N18.31 Chronic kidney disease, stage 3a (principal)
CPT/HCPCS: 36415; 80069